=== PATIENT | female | born 1950 | race Caucasian/White ===

== ENCOUNTER 2021-09-02 05:56 | Day surgery (SDC) | payer MEDICARE, BC ==
[2021-08-31 15:01] VITALS: BMI 27.3
[2021-09-02] MEDS ORDERED: LIDOCAINE 1% (10MG/ML) FOR IV START INTRADERMA PRN (05:58)
[2021-09-02] MEDS ORDERED: LACTATED RINGERS 1,000 ML IV SCH (05:58)
[2021-09-02 06:39] VITALS: TEMP 97.7
[2021-09-02] MEDS ORDERED: PROPOFOL 10 MG/ML 20 ML VIAL IV ONE (07:07)
[2021-09-02] MEDS ORDERED: LIDOCAINE 2% INJ 20 MG/ML (2 ML VIAL) ONE (07:07)
--- NOTE | 2021-09-02 07:24 | P.PCN ---
Date of Procedure: 09/02/21 Procedure(s) Performed: Brief history: Patient is a pleasant 71-year-old white female scheduled for an elective upper endoscopy as well as colonoscopy as a part of evaluation of iron deficiency anemia. She denies any GI symptoms. Has occasional GERD and recent episode 20 mg Procedure performed: Esophagogastroduodenoscopy with biopsy Colonoscopy with biopsy Preoperative diagnosis: GERD Iron deficiency anemia Anesthesia: MAC Procedure: After informed consent was obtained from the patient was brought into the endoscopy unit and IV sedation was administered by anesthesia under continuous monitoring. Initially upper endoscopy was done. The Olympus GF 160 video endoscope was inserted inserted into the mouth and esophagus intubated without any difficulty and was gradually advanced into the stomach and duodenum and carefully examined. The bulb and second part of the duodenum appeared normal. Abscesses were done from the duodenum to rule out celiac disease. The scope was then withdrawn into the stomach adequately insufflated with air and upon careful examination the antrum mild gastritis in the prepyloric area which was biopsied. body, cardia and fundus appeared normal. The scope was then withdrawn into the esophagus. Small hiatal hernia noted. The GE junction was located at 40 cm to the incisors. It appeared regular with no erythema erosions or ulcerations. Rest of the esophagus appeared normal. Patient tolerated the procedure well. At this time the patient continued to remain sedation. Initial digital rectal examination was normal. Olympus CF 160 video colonoscope was then inserted into the rectum and gradually advanced to the cecum without any difficulty. Careful examination was performed as the scope was gradually being withdrawn. The prep was excellent. The cecum, ascending colon, transverse colon, descending colon, sigmoid colon and rectum appeared normal. There was a 3 mm proximal rectal polyp that was removed by cold biopsy. At her sigmoid diverticulosis seen. Retroflexion was performed in the rectum and no lesions were noted. Patient tolerated the procedure well. Impression: 1. Upper endoscopy revealed mild gastritis and small hiatal hernia 2. Colonoscopy revealed a 3 mm proximal rectal polyp status post cold biopsy and scattered sigmoid diverticulosis. Recommendations: Findings of this examination were discussed with the patient as well as her family. She was advised to follow with the biopsy results. If the biopsy is adenoma she can have a repeat colonoscopy in 5 years.
[2021-09-02 07:48] VITALS: BP 120/65; PULSE 66; RESP 16
== END 2021-09-02 08:01 | disposition home or self-care (01) ==
LOC: ORWHC2ENDO 05:56
PROVIDERS: ATTEND Internal Medicine Gastroenterology
DX: Z12.11 Encounter for screening for malignant neoplasm of colon (principal); K62.1 Rectal polyp; K57.90 Diverticulosis of intestine, part unspecified, without perforation or abscess without bleeding; K29.50 Unspecified chronic gastritis without bleeding; K44.9 Diaphragmatic hernia without obstruction or gangrene; K21.9 Gastro-esophageal reflux disease without esophagitis; D50.9 Iron deficiency anemia, unspecified; I12.9 Hypertensive chronic kidney disease with stage 1 through stage 4 chronic kidney disease, or unspecified chronic kidney disease; N18.9 Chronic kidney disease, unspecified; J44.9 Chronic obstructive pulmonary disease, unspecified; E03.9 Hypothyroidism, unspecified; Z85.3 Personal history of malignant neoplasm of breast; Z79.899 Other long term (current) drug therapy; Z79.890 Hormone replacement therapy; F17.210 Nicotine dependence, cigarettes, uncomplicated
CPT/HCPCS: 88305; 45380; 43239; J2704; J2001

== ENCOUNTER 2024-04-03 10:59 | Day surgery (SDC) | payer MEDICARE, BC ==
[~2024-04-03 10:59] MED LIST: HYDROmorphone 0.5 MG/0.5 ML SYRINGE IVP PRN
[2024-04-03] MEDS: IV FLUID CONTINUATION 1,000 ML IV ONE (11:19)
[2024-04-03] MEDS: LACTATED RINGERS 1,000 ML IV SCH (11:45)
[2024-04-03] MEDS: DEXAMETHASONE SOD PHOSPHATE 4 MG/ML 1 ML VIAL IV ONE (11:48)
[2024-04-03] MEDS: ONDANSETRON 4 MG/2 ML VIAL IVP ONE (11:49)
[2024-04-03] MEDS ORDERED: LIDOCAINE 1% INJ 10MG/ML (20 ML MDV) ONE (12:19)
[2024-04-03] MEDS ORDERED: PROPOFOL 10 MG/ML 20 ML VIAL IV ONE (12:19)
[2024-04-03] MEDS ORDERED: MIDAZOLAM 2 MG/2 ML VIAL ONE (12:19)
[2024-04-03] MEDS ORDERED: ePHEDrine 50 MG/ML 1 ML VIAL ONE (12:19)
[2024-04-03] MEDS ORDERED: SUCCINYLCHOLINE CHLORIDE 200 MG/10 ML VIAL IV ONE (12:19)
[2024-04-03] MEDS ORDERED: PHENYLEPHRINE-0.9% NACL SYG 1,000 MCG/10 ML SYRINGE ONE (12:19)
[2024-04-03] MEDS ORDERED: fentaNYL (PF) 50 MCG/ML 2 ML AMP ONE (12:19)
[2024-04-03] MEDS: SODIUM CHLORIDE 0.9% 50 ML with ceFAZolin 1,000 MG IV ONE (12:38)
[2024-04-03] MEDS: LIDOCAINE 1% INJ 10MG/ML (20 ML MDV) SQ ONE (12:42)
[2024-04-03] MEDS: HEPARIN SODIUM,PORCINE 100 UNIT/ML 5 ML VIAL IV ONE (12:43)
[2024-04-03] MEDS ORDERED: HYDROmorphone 0.5 MG/0.5 ML SYRINGE IVP PRN (13:08)
[2024-04-03] MEDS ORDERED: HYDROcodone/APAP 7.5-325MG 1 EACH TAB PO PRN (13:09)
[2024-04-03] MEDS ORDERED: ONDANSETRON 4 MG/2 ML VIAL IVP PRN (13:10)
--- NOTE | 2024-04-03 13:12 | FL ---
Fluoroscopy INDICATION: Pain FINDINGS: Fluoroscopy time: 7.9 seconds. Total dose area product (DAP) in uGy*m?, mGy*cm? (or similar): 0.2373 Images obtained: 3. IMPRESSION: 1. Documentation of fluoroscopy. [facility], , 04/03/2024 1:10 PM
--- NOTE | 2024-04-03 13:41 | XR ---
EXAMINATION TYPE: XR chest 1V DATE OF EXAM: 04/03/2024 1:31 PM COMPARISON: None. CLINICAL INDICATION: Female, 73 years old with history of Pneumothorax, attempted bilateral line plac ement TECHNIQUE: XR chest 1V view(s) obtained. FINDINGS: The heart size is normal. The pulmonary vasculature is normal. Small right pleural effusion is present. No pneumothorax evident. IMPRESSION: 1. Small right pleural effusion. 2. No pneumothorax [facility], , 04/03/2024 1:38 PM
[2024-04-03] MEDS: Pre Op ABX Message 1 EACH MISC MISCELLANE ONE (16:52)
[2024-04-03] MEDS ORDERED: IPRATROPIUM-ALBUTEROL 3 ML NEB INHALATION PRN (18:39)
--- NOTE | 2024-04-03 18:46 | P.CONS ---
History of Present Illness - Reason for Consult Consult date: 04/03/24 - History of Present Illness 73 year F with PMH Breast CA, HTN, COPD, GERD, Hypothyroidism, HLD presents to [facility] for elective surgery. She is scheduled for IJ Mediport insertion on 04/04. [facility] consulted for medical management of this patient. Patient denies any complaints at this time. BP 132/64, HR 72, RR 18, 94% on RA. General: non toxic, no distress, appears at stated age Derm: warm, dry Head: atraumatic, normocephalic, symmetric Eyes: EOMI, no lid lag, anicteric sclera Mouth: no lip lesion, mucus membranes moist Cardiovascular: S1S2 reg, no murmur Lungs: CTA bilateral, no rhonchi, no rales , no accessory muscle use Ext: no gross muscle atrophy, no edema, no contractures Neuro: no focal neuro deficits Psych: Alert, oriented, appropriate affect Based on my assessment of this patient, this patient meets a high complexity level of care. HTN: Atenolol 25 mg PO QD. COPD not in acute exacerbation: DuoNeb QID PRN SOB/wheezing. GERD: Protonix 40 mg PO QD. Pepcid 40 mg PO QHS. Hypothyroidism: Synthroid 100 mcg PO QD. HLD: Pravastatin 40 mg PO QHS. Breast CA following Dr. Bennett CODE STATUS: FULL CODE DVT Prophylaxis: SCD GI Prophylaxis: Pepcid + Protonix Designated medical POA if patient is not able to make medical decisions for themselves: I have reviewed the following service delivery management consultant notes: H&P I have reviewed the results of the following tests: I have ordered the following tests: I have discussed the care of this patient with the following independent historian: I have independently interpreted the following test below: I have discussed the management of this patient with the following physician: Past Medical History Past Medical History: Cancer, COPD, GERD/Reflux, Hypertension, Musculoskeletal Disorder, Pulmonary Embolus (PE), Renal Disease, Thyroid Disorder Additional Past Medical History / Comment(s): hx. PE after childbirth yrs. ago, "bleeds easily" per daughter but no condition that she knows of, Breast cancer diagnosed 10 -15 yrs ago, current bone cancer-getting chemo, daughter not sure if is mets or new, Chronic back pain, "6 deteriorating discs". 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 has occasional dysphagia History of Any Multi-Drug Resistant Organisms: None Reported Past Surgical History: Breast Surgery, Hysterectomy Additional Past Surgical History / Comment(s): Bilateral mastectomy. Past Anesthesia/Blood Transfusion Reactions: No Reported Reaction, Motion Sickness Smoking Status: Current every day smoker, Former smoker - Past Family History Son(s) Family Medical History: Cancer Medications and Allergies Home Medications Medication Instructions Recorded Confirmed Type Cetirizine HCl 10 mg PO DAILY 08/31/21 04/03/24 History Famotidine 40 mg PO HS 08/31/21 04/03/24 History Levothyroxine Sodium [Synthroid] 100 mcg PO QAM 08/31/21 04/03/24 History Pantoprazole [Protonix] 40 mg PO 1500 08/31/21 04/03/24 History Albuterol Inhaler [Ventolin Hfa 1 - 2 puff INHALATION Q6H PRN 03/30/24 04/03/24 History Inhaler] Diphenox-Atrop 2.5-0.025 mg 1 - 2 tab PO DIRECTED PRN 03/30/24 04/03/24 History [Lomotil] Fluticasone/Umeclidin/Vilanter 1 inhalation INHALATION DAILY 03/30/24 04/03/24 History [Trelegy Ellipta 100-62.5-25] Ipratropium-Albuterol Nebulize 3 ml INHALATION QID 03/30/24 04/03/24 History [Duoneb 0.5 mg-3 mg/3 ml Soln] Pravastatin Sodium [Pravachol] 40 mg PO HS 03/30/24 04/03/24 History atenoloL [Tenormin] 25 mg PO DAILY 03/30/24 04/03/24 History Sodium Chloride Tab 500 mg PO DAILY 04/02/24 04/03/24 History Allergies Allergy/AdvReac Type Severity Reaction Status Date / Time No Known Allergies Allergy Verified 04/03/24 11:29 Physical Exam Vitals: Vital Signs Temp Pulse Pulse Pulse Resp BP BP 04/03/24 16:55 51 L 16 115/66 04/03/24 15:40 61 15 117/65 04/03/24 15:10 57 L 16 123/64 04/03/24 14:55 78 16 122/64 04/03/24 14:40 72 18 132/64 02/25/25 14:25 70 17 128/66 04/03/24 14:11 64 16 132/68 04/03/24 13:56 70 17 158/87 04/03/24 13:41 70 18 167/82 04/03/24 13:26 78 18 154/68 04/03/24 13:11 96.9 F L 83 16 143/79 04/03/24 11:38 97.0 F L 60 16 130/71 Pulse Ox 04/03/24 16:55 100 04/03/24 15:40 92 L 04/03/24 15:10 100 04/03/24 14:55 93 L 04/03/24 14:40 94 L 04/03/24 14:25 95 04/03/24 14:11 91 L 04/03/24 13:56 92 L 04/03/24 13:41 96 04/03/24 13:26 99 04/03/24 13:11 99 04/03/24 11:38 97 Intake and Output 04/03/24 04/03/24 04/03/24 06:59 14:59 22:59 Intake Total 750 50 Output Total 15 Balance 735 50 Intake: IV 750 50 Output: Estimated Blood Loss 15 Other: Weight 47.5 kg 47.5 kg
[2024-04-03] MEDS: FAMOTIDINE 20 MG TAB PO SCH (20:52)
[2024-04-03] MEDS: PRAVASTATIN SODIUM 40 MG TAB PO SCH (20:52)
[2024-04-04] MEDS: LEVOTHYROXINE 100 MCG TAB PO SCH (04:41)
[2024-04-04] MEDS: SYMBICORT 160-4.5 MCG INHALER INHALATION SCH (09:05)
[2024-04-04] MEDS: LORATADINE 10 MG TAB PO SCH (10:12)
[2024-04-04] MEDS: atenoloL 25 MG TAB PO SCH (10:12)
[2024-04-04 10:24] LABS: Anisocytosis Slight; Basophils % (A) 0 %; Eosinophils # (A) 0.1 k/uL (0-0.7); Eosinophils % (A) 1 %; HGB 9.3 gm/dL (11.4-16.0); Hypochromasia Moderate; Lymphocytes % (A) 8 %; MCH 30.4 pg (25.0-35.0); MCV 101.3 fL (80.0-100.0); Macrocytosis Slight; Mean Platelet Volume 8.4; Monocytes # (A) 0.6 k/uL (0-1.0); Monocytes % (A) 5 %; Neutrophils # (A) 10.8 k/uL (1.3-7.7); Neutrophils % (A) 85 %; Platelet Count 323 k/uL (150-450); RBC 3.06 m/uL (3.80-5.40); WBC 12.6 k/uL (3.8-10.6)
[2024-04-04 10:34] LABS: African American GFR (CKD) 34 (>60 ml/min/1.73 sqM); Anion Gap 8 mmol/L; Blood Urea Nitrogen 23 mg/dL (7-17); Calcium 8.7 mg/dL (8.4-10.2); Carbon Dioxide 23 mmol/L (22-30); Chloride 105 mmol/L (98-107); Glucose 89 mg/dL (74-99); Non-African American GFR(CKD) 29 (>60 ml/min/1.73 sqM); Potassium 4.6 mmol/L (3.5-5.1); Sodium 136 mmol/L (137-145)
--- NOTE | 2024-04-04 13:58 | P.PN ---
Subjective Progress Note Date: 04/04/24 Subjective: Patient seen and examined at bedside. No acute events overnight. Pertinent positives and negatives as discussed above, a complete review of systems was performed and all other systems are negative. Vitals Signs Reviewed. General: Nontoxic, no distress, appears at stated age Derm: Warm, dry Head: Atraumatic, normocephalic, symmetric Eyes: EOMI, no lid lag, anicteric sclera Mouth: No lip lesion, mucus membranes moist Cardiovascular: S1S2 reg, no murmur Lungs: CTA bilateral, no rhonchi, no rales, no accessory muscle use Abdominal: Soft, nontender to palpation, no guarding, no appreciable organomegaly Ext: No gross muscle atrophy, no edema, no contractures Neuro: CN II-XI grossly intact, no focal neuro deficits Psych: Alert, oriented, appropriate affect Data Reviewed Today: Pertinent Labs: WBC 12.6, hemoglobin 9.3, creatinine 1.74 Imaging: No new imaging Assessment and Plan: Active: Breast cancer with recurrence, on chemotherapy -Patient pending Mediport insertion today -Admitted to general surgery Leukocytosis, likely reactive -No evidence of infection -Trend CBC Microcytic anemia, hemoglobin 9.3 -No active bleeding -Repeat hemoglobin tomorrow CKD stage III -Nonoliguric -Repeat BMP tomorrow -If worsening, consider renal ultrasound and nephrology consult HTN: Atenolol 25 mg PO QD. COPD not in acute exacerbation: DuoNeb QID PRN SOB/wheezing. GERD: Protonix 40 mg PO QD. Pepcid 40 mg PO QHS. Hypothyroidism: Synthroid 100 mcg PO QD. HLD: Pravastatin 40 mg PO QHS. Thank you for allowing us to participate in the care of this pleasant patient. Do not hesitate to contact us with questions. Someone can be reached from the [facility] hospitalist group all hours of the day at [phone] or via [employer]. Objective - Vital Signs Vital signs: Vital Signs Temp 97.7 F 04/04/24 13:21 Pulse 54 L 04/04/24 13:21 Resp 16 04/04/24 13:21 BP 90/51 04/04/24 13:21 Pulse Ox 98 04/04/24 13:21 FiO2 Intake & Output 04/03/24 04/04/24 04/04/24 18:59 06:59 18:59 Intake Total 1040 750 Output Total 15 Balance 1025 750 Weight 47.5 kg Intake: IV 800 Intake, IV Titration 240 Amount Lactated Ringers 1,000 ml 240 @ 20 mls/hr IV .Q24H CHASE Rx#:[id number] Oral 750 Output: Estimated Blood Loss 15 Other: # Voids 1 - Labs CBC & Chem 7: 04/04/24 09:54 04/04/24 09:54 Labs: Abnormal Lab Results - Last 24 Hours (Table) 04/04/24 04/04/24 Range/Units 09:54 09:54 WBC 12.6 H (3.8-10.6) k/uL RBC 3.06 L (3.80-5.40) m/uL Hgb 9.3 L (11.4-16.0) gm/dL Hct 31.0 L (34.0-46.0) % MCV 101.3 H (80.0-100.0) fL MCHC 30.0 L (31.0-37.0) g/dL RDW 17.0 H (11.5-15.5) % Neutrophils # 10.8 H (1.3-7.7) k/uL Sodium 136 L (137-145) mmol/L BUN 23 H (7-17) mg/dL Creatinine 1.74 H (0.52-1.04) mg/dL
[2024-04-04] MEDS: PANTOPRAZOLE 40 MG TABLET PO SCH (14:09)
[2024-04-04 14:43] VITALS: BMI 20.4
[2024-04-04] MEDS: IV FLUID CONTINUATION 400 ML IV ONE (14:59)
--- NOTE | 2024-04-04 15:52 | P.PN ---
Progress Note - Text Progress Note Date: 04/04/24 Plan to attempt Mediport insertion through left IJ today. Case discussed in depth with patient. She is agreeable with plan. Risks, benefits and alternatives including risks of bleeding and pneumothorax were discussed.
[2024-04-04] MEDS ORDERED: ePHEDrine 50 MG/ML 1 ML VIAL ONE (15:59)
[2024-04-04] MEDS ORDERED: fentaNYL (PF) 50 MCG/ML 2 ML AMP ONE (15:59)
[2024-04-04] MEDS ORDERED: PROPOFOL 10 MG/ML 20 ML VIAL IV ONE (15:59)
[2024-04-04] MEDS ORDERED: LIDOCAINE 1% INJ 10MG/ML (20 ML MDV) ONE (15:59)
[2024-04-04] MEDS ORDERED: MIDAZOLAM 2 MG/2 ML VIAL ONE (15:59)
[2024-04-04] MEDS: FLUID CONTINUATION IV ONE (16:01)
[2024-04-04] MEDS: CEFAZOLIN IV ONE (16:01)
[2024-04-04] MEDS: BUPIVACAINE (PF) 0.25% 30 ML VIAL SQ ONE (16:19)
[2024-04-04 16:53] VITALS: TEMP 97
--- NOTE | 2024-04-04 18:21 | XR ---
EXAMINATION TYPE: XR chest 1V confirm [facility] DATE OF EXAM: 04/04/2024 COMPARISON: Chest x-ray April 03, 2024 CLINICAL INDICATION: Female, 73 years old with history of Mediport placement; TECHNIQUE: Single portable frontal upright view of the chest is obtained. FINDINGS: There is new left internal jugular Mediport catheter terminating in SVC. There is stable sm all right pleural effusion and mild cardiomegaly. No pneumothorax seen after catheter insertion bilat erally. New Mild bilateral interstitial edema. The osseous structures are intact. IMPRESSION: As above. [facility], , 04/04/2024 6:19 PM
[2024-04-04 18:26] VITALS: BP 113/59; PULSE 52; RESP 18
[2024-04-04] MEDS ORDERED: FAMOTIDINE 20 MG TAB PO SCH (21:00)
--- NOTE | 2024-04-04 21:13 | P.DS ---
Providers Attending physician: Andrae Mckenna DO Consults: 04/03/24 13:08 Consult Physician Routine Consulting Provider: Rafiq Lee Consult Reason/Comments: Medical Management Do you want consulting provider notified?: Yes Primary care physician: Dem[facility] Course: Patient presented for elective Mediport placement secondary to breast cancer. Mediport placement and subclavian was unsuccessful and secondary to multiple attempts, patient was admitted for observation with plan to retry placement through the internal jugular vein. Next day, patient did present through internal jugular vein on the left side with successful appropriate flush and withdrawal. Postoperative chest x-ray was performed with no evidence of pneumothorax. Patient tolerated the procedure well and is surgically stable for discharge Procedures: Mediport placement with fluoroscopy Patient Condition at Discharge: Good Plan - Discharge Summary Discharge Rx Participant: No New Discharge Prescriptions: New HYDROcodone/APAP 7.5-325MG [[place] 7.5-325] 1 each PO Q6HR PRN #10 tab PRN Reason: Moderate Pain (Scale 4 To 6) Continue Levothyroxine Sodium [Synthroid] 100 mcg PO QAM Pantoprazole [Protonix] 40 mg PO 1500 Cetirizine HCl 10 mg PO DAILY Pravastatin Sodium [Pravachol] 40 mg PO HS atenoloL [Tenormin] 25 mg PO DAILY Ipratropium-Albuterol Nebulize [Duoneb 0.5 mg-3 mg/3 ml Soln] 3 ml INHALATION QID Fluticasone/Umeclidin/Vilanter [Trelegy Ellipta 100-62.5-25] 1 inhalation INHALATION DAILY Sodium Chloride Tab 500 mg PO DAILY Famotidine 40 mg PO HS Diphenox-Atrop 2.5-0.025 mg [Lomotil] 1 - 2 tab PO DIRECTED PRN PRN Reason: Diarrhea Albuterol Inhaler [Ventolin Hfa Inhaler] 1 - 2 puff INHALATION Q6H PRN PRN Reason: Shortness Of Breath Discharge Medication List Cetirizine HCl 10 mg PO DAILY 08/31/21 [History] Famotidine 40 mg PO HS 08/31/21 [History] Levothyroxine Sodium [Synthroid] 100 mcg PO QAM 08/31/21 [History] Pantoprazole [Protonix] 40 mg PO 1500 08/31/21 [History] Albuterol Inhaler [Ventolin Hfa Inhaler] 1 - 2 puff INHALATION Q6H PRN 03/30/24 [History] Diphenox-Atrop 2.5-0.025 mg [Lomotil] 1 - 2 tab PO DIRECTED PRN 03/30/24 [History] Fluticasone/Umeclidin/Vilanter [Trelegy Ellipta 100-62.5-25] 1 inhalation INHALATION DAILY 03/30/24 [History] Ipratropium-Albuterol Nebulize [Duoneb 0.5 mg-3 mg/3 ml Soln] 3 ml INHALATION QID 03/30/24 [History] Pravastatin Sodium [Pravachol] 40 mg PO HS 03/30/24 [History] atenoloL [Tenormin] 25 mg PO DAILY 03/30/24 [History] Sodium Chloride Tab 500 mg PO DAILY 04/02/24 [History] HYDROcodone/APAP 7.5-325MG [[place] 7.5-325] 1 each PO Q6HR PRN #10 tab 04/04/24 [Rx] Patient Instructions/Handouts: Hydrocodone/Acetaminophen (By mouth), Implanted Venous Access Port (DC) Activity/Diet/Wound Care/Special Instructions: Okay to shower beginning 04/05/2024 Take pain medication as needed Contact oncology office to begin chemotherapy Discharge Disposition: HOME SELF-CARE
--- NOTE | 2024-04-04 21:15 | P.OP ---
Date of Procedure: 04/04/24 Preoperative Diagnosis: Breast cancer Postoperative Diagnosis: Breast cancer Procedure(s) Performed: Mediport placement with fluoroscopic guidance Anesthesia: RADHA Surgeon: Alfie Simmons Pathology: none sent Condition: stable Disposition: same day Indications for Procedure: 73-year-old female presents for Mediport placement secondary to breast cancer. She had multiple attempts made through subclavian attempt yesterday with unsuccessful advancement of the wire. Secondary to this, plan is for another attempt through internal jugular vein today. Risks, benefits and alternatives were provided to the patient. All questions were answered. Operative Findings: Appropriate flush and withdrawal from Mediport site Description of Procedure: Patient was brought to the operating suite and placed in supine position on the operating table. Sedation was provided by anesthesia and the patient underwent endotracheal intubation. Patient was then prepped and draped in regular sterile fashion. Local anesthetic was administered and the left internal jugular vein was entered on first attempt. Guidewire was then placed and location was confirmed under fluoroscopic guidance. At this point local anesthetic was administered to create the pocket for the port. Incision was made and dissection was carried to the prepectoralis fascia. Dissection was carried to free up space for the port. At this point a small incision was made at the guidewire insertion site and a tunnel was created between this guidewire site and the pocket and catheter was placed. Dilator sheath was then placed over the guidewire under fluoroscopic guidance and catheter was then placed. Catheter was noted to be in appropriate position and was connected to the port and port was placed in the pocket. Appropriate flush and withdrawal was noted from the port site. The port was then secured to the prepectoralis fascia in 2 separate locations. Fluoroscopic guidance confirmed location with no kinks in the catheter. Heparin lock was placed. The wound was then closed in layers with 3- 0 Vicryl and 4-0 Vicryl subcuticular suture. Sterile dressing was applied. The patient was then taken to postanesthesia care unit in stable condition with pending chest x-ray.
--- NOTE | 2024-04-04 23:46 | FL ---
Fluoroscopy INDICATION: Pain FINDINGS: Fluoroscopy time: 30 seconds. Total dose area product (DAP) in uGy*m?, mGy*cm? (or similar): Not recorded Images obtained: 1. IMPRESSION: 1. Documentation of fluoroscopy. [facility], , 04/04/2024 11:44 PM
[2024-04-05] MEDS ORDERED: TIOTROPIUM 2.5 MCG INHALER INHALATION SCH (08:00)
== END 2024-04-04 19:17 | disposition home or self-care (01) ==
LOC: OR 10:59 → 5NMEDONC 16:03 → OR 04-04 19:17
PROVIDERS: ATTEND Surgery
DX: C50.919 Malignant neoplasm of unspecified site of unspecified female breast (principal); C79.51 Secondary malignant neoplasm of bone; M81.0 Age-related osteoporosis without current pathological fracture; M54.50 Low back pain, unspecified; Z71.89 Other specified counseling; Z17.0 Estrogen receptor positive status [ER+]; Z45.2 Encounter for adjustment and management of vascular access device; Z79.890 Hormone replacement therapy; Z79.899 Other long term (current) drug therapy
CPT/HCPCS: 77001; 71045; 36561; J1100; J2405; J0690; J2003; 80048; 85025; 94640

== ENCOUNTER 2024-04-15 12:35 | Inpatient (IN) | payer MEDICARE, BC ==
[2024-04-15] MEDS: HYDROmorphone 0.5 MG/0.5 ML SYRINGE IVP STA ×2 (13:05→14:18)
[2024-04-15 13:20] LABS: Anisocytosis Slight; Basophils % (A) 0 %; Eosinophils # (A) 0.3 k/uL (0-0.7); Eosinophils % (A) 3 %; HCT 30.4 % (34.0-46.0); HGB 9.5 gm/dL (11.4-16.0); Hypochromasia Slight; Lymphocytes # (A) 1.5 k/uL (1.0-4.8); Lymphocytes % (A) 15 %; MCH 30.6 pg (25.0-35.0); MCHC 31.3 g/dL (31.0-37.0); MCV 97.8 fL (80.0-100.0); Macrocytosis Slight; Monocytes # (A) 0.1 k/uL (0-1.0); Monocytes % (A) 1 %; Neutrophils # (A) 7.7 k/uL (1.3-7.7); Neutrophils % (A) 79 %; Platelet Count 384 k/uL (150-450); RBC 3.11 m/uL (3.80-5.40); WBC 9.7 k/uL (3.8-10.6)
--- NOTE | 2024-04-15 13:35 | CT ---
EXAMINATION TYPE: CT brain emiline wo con DATE OF EXAM: 04/15/2024 COMPARISON: None CLINICAL INDICATION: Female, 73 years old with history of pain; PHH, FALL TECHNIQUE: CT scan of the head and cervical spine are performed without contrast. CT DLP: 1335.[address] CTDI: mGy Automated exposure control for dose reduction was used. Findings: Head CT: Ventricles, basal cisterns and sulci over convexities within normal limits for the patient's age and there is no mass, mass effect or shift of midline structures. No abnormal density is seen throughout the brain parenchyma and there is no acute intra or extra-axia l hemorrhage. Posterior fossa including the brainstem, fourth ventricle and cerebellar pontine angles are grossly n ormal. The intraorbital contents appear normal and symmetric. Visualized paranasal sinuses are well aerated. There are no calvarial fractures but there are multiple sclerotic foci throughout the calvarium kristen childs the question of bone metastasis CT cervical spine: Craniovertebral junction relationships and prevertebral soft tissues are normal. The cervical vertebral segments are normal in height and alignment and there is no fracture subluxati on. The disc spaces are well-maintained in height and there is no significant degenerative disc disease. The bony cervical canal is widely patent and there is no bony encroachment of the neural foramina. There are multiple sclerotic densities throughout the cervical spine raising question of bone metasta sis correlation is recommended. The paraspinal soft tissues unremarkable. Note is made of at least a moderate right pleural effusion. IMPRESSION: 1. Head CT: No acute bleed or mass effect. Question of sclerotic metastases throughout the calvarium. 2. CT cervical spine: No acute trauma. Sclerotic metastases throughout the cervical spine. 3. Right pleural effusion [facility], , 04/15/2024 1:33 PM
[2024-04-15 13:36] LABS: ALT 20 U/L (4-34); AST 27 U/L (14-36); African American GFR (CKD) 30 (>60 ml/min/1.73 sqM); Alkaline Phosphatase 89 U/L (38-126); Anion Gap 12 mmol/L; Blood Urea Nitrogen 18 mg/dL (7-17); Carbon Dioxide 21 mmol/L (22-30); Chloride 105 mmol/L (98-107); Glucose 116 mg/dL (74-99); Non-African American GFR(CKD) 26 (>60 ml/min/1.73 sqM); Potassium 3.9 mmol/L (3.5-5.1); Sodium 138 mmol/L (137-145); Total Bilirubin 0.7 mg/dL (0.2-1.3); Total Protein 6.1 g/dL (6.3-8.2)
--- NOTE | 2024-04-15 13:37 | XR ---
Right wrist. HISTORY: Pain following fall. COMPARISON: None TECHNIQUE: 4 views of the right wrist are obtained. FINDINGS: There is no fracture, dislocation, intraosseous, intra-articular or soft tissue abnormality. IMPRESSION: No significant abnormality seen. No acute trauma [facility], , 04/15/2024 1:35 PM
--- NOTE | 2024-04-15 13:40 | XR ---
EXAMINATION TYPE: XR Hip RT and AP Pelvis DATE OF EXAM: 04/15/2024 COMPARISON: NONE CLINICAL INDICATION: Female, 73 years old with history of fall; right TECHNIQUE: A single AP view of the pelvis is obtained. Two views of the right hip are obtained. FINDINGS: There is heterogeneous partially sclerotic partially lytic density throughout the pelvis consistent w ith bone metastasis. There is no acute pelvic fracture. There is no diastasis of the SI joints or pub ic symphysis. There is a mildly displaced intertrochanteric fracture of the right hip. The fracture appears to pass through abnormal partially sclerotic bone and is consistent with a pathological fracture.. IMPRESSION: 1. 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 2. Pathologic displaced intertrochanteric fracture of the right hip. 3. No pelvic fracture [facility], Workstation: [email or web address] 04/15/2024 1:37 PM
--- NOTE | 2024-04-15 13:42 | XR ---
EXAMINATION TYPE: XR chest 1V DATE OF EXAM: 04/15/2024 COMPARISON: 04/03/2024 CLINICAL INDICATION: Female, 73 years old with history of fall; TECHNIQUE: Single frontal view of the chest is obtained. FINDINGS: There is a Mediport catheter on the left terminating in the SVC/RA junction. There is a stable small to moderate right pleural effusion. The lungs are clear. The heart and pulmonary vasculature are normal in normal limits. The osseous structures are grossly intact. IMPRESSION: Stable small moderate right pleural effusion. [facility], , 04/15/2024 1:39 PM
[2024-04-15] MEDS ORDERED: NALOXONE 0.4 MG/ML 1 ML VIAL IV PRN (13:58)
[2024-04-15] MEDS ORDERED: HYDROmorphone 0.5 MG/0.5 ML SYRINGE IVP PRN (13:58)
--- NOTE | 2024-04-15 13:58 | ED ---
Fall HPI - General Chief Complaint: Fall Stated Complaint: Fall-R hip/wrist injury Time Seen by Provider: 04/15/24 12:36 Source: patient, EMS Mode of arrival: EMS Limitations: physical limitation - History of Present Illness Initial Comments: 73-year-old female presents emerged part via EMS chief complaint of fall, right hip pain right wrist pain. Patient states that she was unpacking the dog leash when she lost her balance falling striking her right side. She did strike her head but had no loss conscious no blood thinners. Patient states she probably has right hip and right wrist severe pain. Patient does have a history of breast cancer started chemotherapy last Tuesday states that she had a recent port placed also. - Related Data Home Medications Medication Instructions Recorded Confirmed Cetirizine HCl 10 mg PO DAILY 08/31/21 04/15/24 Famotidine 40 mg PO DAILY 08/31/21 04/15/24 Pantoprazole [Protonix] 40 mg PO DAILY 08/31/21 04/15/24 Albuterol Inhaler [Ventolin Hfa 2 puff INHALATION RT-Q4H PRN 03/30/24 04/15/24 Inhaler] Diphenox-Atrop 2.5-0.025 mg 1 tab PO QID PRN 03/30/24 04/15/24 [Lomotil] Ipratropium-Albuterol Nebulize 3 ml INHALATION RT-QID 03/30/24 04/15/24 [Duoneb 0.5 mg-3 mg/3 ml Soln] Pravastatin Sodium [Pravachol] 40 mg PO DAILY 03/30/24 04/15/24 atenoloL [Tenormin] 25 mg PO BID 03/30/24 04/15/24 Calcium 500mg 500 mg PO DAILY 04/15/24 04/15/24 HYDROcodone/APAP 7.5-325MG [[place] 1 tab PO Q6HR PRN 04/15/24 04/15/24 7.5-325] Levothyroxine Sodium [Synthroid] 100 mcg PO DAILY 04/15/24 04/15/24 Lidocaine-Prilocaine Cream [Emla 1 applic TOPICAL DIRECTED PRN 04/15/24 04/15/24 Cream 2.5%/2.5%] Loperamide [Imodium] 2 - 4 mg PO Q6H 04/15/24 04/15/24 Ondansetron Odt [Zofran Odt] 4 - 8 mg PO Q4H PRN 04/15/24 04/15/24 Previous Rx's Medication Instructions Recorded Apixaban [Eliquis] 2.5 mg PO BID 30 Days #60 tab 04/17/24 HYDROcodone/APAP 5-325MG [[place] 1 tab PO Q6HR PRN #28 tab 04/17/24 5-325] Sennosides [Senokot] 2 tab PO DAILY PRN #60 tablet 04/17/24 Allergies Allergy/AdvReac Type Severity Reaction Status Date / Time No Known Allergies Allergy Verified 04/17/24 08:42 Review of Systems ROS Statement: Those systems with pertinent positive or pertinent negative responses have been documented in the HPI. ROS Other: All systems not noted in ROS Statement are negative. Past Medical History Past Medical History: Cancer, COPD, GERD/Reflux, Hypertension, Musculoskeletal Disorder, Pulmonary Embolus (PE), Renal Disease, Thyroid Disorder Additional Past Medical History / Comment(s): hx. PE after childbirth yrs. ago, "bleeds easily" per daughter but no condition that she knows of, Breast cancer diagnosed 10 -15 yrs ago, current bone cancer-getting chemo, daughter not sure if is mets or new, Chronic back pain, "6 deteriorating discs". 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 has occasional dysphagia History of Any Multi-Drug Resistant Organisms: None Reported Past Surgical History: Breast Surgery, Hysterectomy Additional Past Surgical History / Comment(s): Bilateral mastectomy. Past Anesthesia/Blood Transfusion Reactions: No Reported Reaction, Motion Sickness Smoking Status: Current every day smoker, Former smoker - Past Family History Son(s) Family Medical History: Cancer General Exam Limitations: no limitations General appearance: alert, in no apparent distress Head exam: Present: atraumatic, normocephalic, normal inspection Eye exam: Present: normal appearance, PERRL, EOMI. Absent: scleral icterus, conjunctival injection, periorbital swelling ENT exam: Present: normal exam, normal oropharynx, mucous membranes moist Neck exam: Present: normal inspection. Absent: tenderness, meningismus, lymphadenopathy Respiratory exam: Present: normal lung sounds bilaterally. Absent: respiratory distress, wheezes, rales, rhonchi, stridor Cardiovascular Exam: Present: regular rate, normal rhythm, normal heart sounds. Absent: systolic murmur, diastolic murmur, rubs, gallop, clicks GI/Abdominal exam: Present: soft, normal bowel sounds. Absent: distended, tenderness, guarding, rebound, rigid Course Vital Signs 04/15/24 04/15/24 04/15/24 12:38 14:06 14:12 Temperature 97.7 F Pulse Rate 56 L 66 Respiratory 18 18 18 Rate Blood Pressure 122/74 141/84 O2 Sat by Pulse 81 L 100 Oximetry 04/15/24 14:35 Temperature Pulse Rate 72 Respiratory 18 Rate Blood Pressure 128/65 O2 Sat by Pulse 99 Oximetry Medical Decision Making - Medical Decision Making Was pt. sent in by a medical professional or institution (, PA, SAFETY ASSISTANT, urgent care, hospital, or shelter...) When possible be specific @ -No Did you speak to anyone other than the patient for history (EMS, parent, family, police, friend...)? What history was obtained from this source @ -No Did you review nursing and triage notes (agree or disagree)? Why? @ -I reviewed and agree with nursing and triage notes Were old charts reviewed (outside hosp., previous admission, EMS record, old EKG, old radiological studies, urgent care reports/EKG's, shelter records)? Report findings @ -No old charts were reviewed Differential Diagnosis (chest pain, altered mental status, abdominal pain women, abdominal pain men, vaginal bleeding, weakness, fever, dyspnea, syncope, headache, dizziness, GI bleed, back pain, seizure, CVA, palpatations, mental health, musculoskeletal)? @ -Fall, hip fracture, hip dislocation, wrist fracture, intracranial hemorrhage, EKG interpreted by me (3pts min.). @ -As above X-rays interpreted by me (1pt min.). @ -Chest x-ray shows pleural effusion stable X-ray right wrist shows no obvious acute fracture. X-ray right hip with AP pelvis showing evidence of IT fracture pathological CT interpreted by me (1pt min.). @CT right hip showing mildly displaced hip fracture intertrochanteric, multiple lytic lesions noted, U/S interpreted by me (1pt. min.). @ -None done What testing was considered but not performed or refused? (CT, X-rays, U/S, labs)? Why? @ -None What meds were considered but not given or refused? Why? @ -None Did you discuss the management of the patient with other professionals (professionals i.e. , PA, SAFETY ASSISTANT, lab, RT, psych nurse, social work manager, sports bookmaker, teacher, ship's electronic warfare officer, case loader operator)? Give summary @ -Discussed case with on-call orthopedics Dr. Hurst recommends CT of the right hip, admission to medicine given multiple core morbidities. I discussed case with [facility] on-call [facility] group who accepts admission. Was smoking cessation discussed for >3mins.? @ -No Was critical care preformed (if so, how long)? @ -No Were there social determinants of health that impacted care today? How? (Homelessness, low income, unemployed, alcoholism, drug addiction, transportation, low edu. Level, literacy, decrease access to med. care, shelter, rehab)? @ -No Was there de-escalation of care discussed even if they declined (Discuss DNR or withdrawal of care, Hospice)? DNR status @ -No What co-morbidities impacted this encounter? (DM, HTN, Smoking, COPD, CAD, Cancer, CVA, ARF, Chemo, Hep., AIDS, mental health diagnosis, sleep apnea, morbid obesity)? @ -Metastatic breast cancer, COPD, Was patient admitted / discharged? Hospital course, mention meds given and route, prescriptions, significant lab abnormalities, going to OR and other pertinent info. @ -Admitted patient presented after a fall. Patient with a right IT pathological fracture patient does have metastatic breast cancer and multiple other comorbidities. Patient will be admitted for medical evaluation, medical clearance and orthopedic evaluation. Undiagnosed new problem with uncertain prognosis? @ -Yes Drug Therapy requiring intensive monitoring for toxicity (Heparin, Nitro, Insulin, Cardizem)? @ -No Were any procedures done? @ -No Diagnosis/symptom? @ -falll, right IT pathological fracture, metastatic breast cancer Acute, or Chronic, or Acute on Chronic? @ -Acute Uncomplicated (without systemic symptoms) or Complicated (systemic symptoms)? @ -Complicated Side effects of treatment? @ -No Exacerbation, Progression, or Severe Exacerbation? @ -No Poses a threat to life or bodily function? How? (Chest pain, [place], [place], pneumonia, PE, COPD, DKA, ARF, appy, cholecystitis, CVA, Diverticulitis, Homicidal, Suicidal, threat to staff... and all critical care pts) @ -Yes surgical risk, metastatic breast cancer - Lab Data Result diagrams: 04/15/24 13:13 04/15/24 13:13 Lab Results 04/15/24 04/15/24 04/15/24 Range/Units 13:13 13:13 13:13 WBC 9.7 (3.8-10.6) k/uL RBC 3.11 L (3.80-5.40) m/uL Hgb 9.5 L (11.4-16.0) gm/dL Hct 30.4 L (34.0-46.0) % MCV 97.8 (80.0-100.0) fL MCH 30.6 (25.0-35.0) pg MCHC 31.3 (31.0-37.0) g/dL RDW 17.0 H (11.5-15.5) % Plt Count 384 (150-450) k/uL MPV 7.0 Neutrophils % 79 % Lymphocytes % 15 % Monocytes % 1 % Eosinophils % 3 % Basophils % 0 % Neutrophils # 7.7 (1.3-7.7) k/uL Lymphocytes # 1.5 (1.0-4.8) k/uL Monocytes # 0.1 (0-1.0) k/uL Eosinophils # 0.3 (0-0.7) k/uL Basophils # 0.0 (0-0.2) k/uL Hypochromasia Slight Anisocytosis Slight Macrocytosis Slight PT 10.7 (10.0-12.5) sec INR 1.0 (<1.2) APTT 21.4 L (22.0-30.0) sec Sodium 138 (137-145) mmol/L Potassium 3.9 (3.5-5.1) mmol/L Chloride 105 (98-107) mmol/L Carbon Dioxide 21 L (22-30) mmol/L Anion Gap 12 mmol/L BUN 18 H (7-17) mg/dL Creatinine 1.89 H (0.52-1.04) mg/dL Est GFR (CKD-EPI)AfAm 30 (>60 ml/min/1.73 sqM) Est GFR (CKD-EPI)NonAf 26 (>60 ml/min/1.73 sqM) Glucose 116 H (74-99) mg/dL Calcium 9.0 (8.4-10.2) mg/dL Total Bilirubin 0.7 (0.2-1.3) mg/dL AST 27 (14-36) U/L ALT 20 (4-34) U/L Alkaline Phosphatase 89 (38-126) U/L Total Protein 6.1 L (6.3-8.2) g/dL Albumin 3.0 L (3.5-5.0) g/dL - EKG Data -: EKG Interpreted by Me EKG Comments: EKG performed at 13: 59 sinus bradycardia rate of 59 MS 151 QRS 81 QT/QTc 424/424 Disposition Clinical Impression: Fall, Breast cancer metastasized to bone, Fracture, intertrochanteric, right femur, Sprain of wrist Disposition: ADMITTED IP TO THIS [facility] Condition: Fair Time of Disposition: 13:52
[2024-04-15] MEDS ORDERED: IPRATROPIUM-ALBUTEROL 3 ML NEB INHALATION PRN (14:00)
[2024-04-15 14:02] LABS: Partial Thromboplastin Time 21.4 sec (22.0-30.0); Prothrombin Time 10.7 sec (10.0-12.5)
[2024-04-15] MEDS: HYDROmorphone 1 MG/ML 1 ML SYRINGE IVP PRN (15:14)
--- NOTE | 2024-04-15 15:35 | CT ---
EXAMINATION TYPE: CT hip RT wo con DATE OF EXAM: 04/15/2024 2:49 PM COMPARISON: Radiograph 04/25/2024. CLINICAL INDICATION: Female, 73 years old with history of Fall, pathological fracture; [facility], TECHNIQUE: Axial images were obtained of the CT hip RT wo con, Additional coronal and sagittal reform atted images and soft tissue and bone window were obtained for review. 3-D reconstruction was created on a separate workstation. FINDINGS: Extensive mixed blastic and lytic osseous metastatic disease throughout the visualized axial and appe ndicular skeleton. Comminuted displaced fracture of the right femoral neck and intertrochanteric romel on. Right femoral head articulates with the acetabulum. Lucent lesion in the proximal right femur bossman picious for pathologic fracture. Greater and lesser trochanters are displaced. Pubic bones appear int act as visualized. No unexpected radio opaque foreign body. Significantly impacted rectosigmoid colon ic stool burden with likely surgical colitis. Manriquez catheter visualized within the urinary bladder kartik men. IMPRESSION: 1. Likely pathologic comminuted mildly displaced fracture of the proximal right femur as described a angela. 2. Extensive lytic and blastic osseous metastatic disease are identified axial and appendicular skel eton. 3. Impacted rectosigmoid colonic stool and additional findings suggestive of stercoral colitis. 4. Manriquez catheter in place within urinary bladder lumen. [facility], , 04/15/2024 3:33 PM
--- NOTE | 2024-04-15 16:34 | XR ---
EXAMINATION TYPE: XR femur RT DATE OF EXAM: 04/15/2024 4:27 PM COMPARISON: Same day CT study. CLINICAL INDICATION: Female, 73 years old with history of Broken hip; PHH, pain TECHNIQUE: XR femur RT examined in Frontal and lateral projections. FINDINGS: Comminuted displaced intertrochanteric fracture of the proximal right femur with mild late ral distraction of the distal fracture component. Right femoral head appears to articulate with the g lenoid. Lytic and blastic metastatic disease better visualized on same-day CT. IMPRESSION: Comminuted displaced intertrochanteric fracture of the proximal right femur. [facility], , 04/15/2024 4:32 PM
[2024-04-15] MEDS ORDERED: NON FORMULARY DRUG (Albuterol Inhaler 90 MCG Puff) INHALATION PRN (17:03)
--- NOTE | 2024-04-15 17:06 | P.HPIM ---
History of Present Illness H&P Date: 04/15/24 Chief Complaint: Mechanical fall with hip pain 73-year-old woman with medical history of COPD, metastatic breast cancer to the bones, hypertension, hyperlipidemia, GERD presented for evaluation of mechanical fall resulting in hip fracture. Patient says that she was outside trying to untangle her dog from the tree so that she can bring it inside when the leash got caught up in her legs and she tripped over it, fell and felt an immediate pain in the right hip. Patient also tells me that she recently resumed her chemotherapy for metastatic breast cancer for which she has had a history of for over 10 years and was on estrogen therapy, but unfortunately her disease retu rned and she had to resume chemo starting last week. She does continue to smoke cigarettes, but does not drink or do recreational drugs. She is able to do house chores such as cleaning the house, laundry at home without any shortness of breath or angina. She otherwise denies fevers, chills, nausea, vomiting, chest pain, palpitations, diarrhea, dysuria. In the emergency room, patient was afebrile, 122/74, heart rate 56, 100% on 2 L of nasal cannula. CBC demonstrates anemia down to 9.5, this is patient's baseline. Basic metabolic panel demonstrates creatinine of 1.9, close to patient's baseline of 1.7. Albumin is low. Coags are unremarkable. Head CT showed no acute bleed or mass effect with question of sclerotic masses throughout the calvarium, CT cervical spine showed no acute trauma with sclerotic metastases throughout the cervical spine, also demonstrated an incidental right pleural effusion. Wrist x-ray was normal. Hip/pelvic x-ray showed diffuse bone metastasis in the hips and pelvis as well as a pathologic displaced intertrochanteric fracture of the right hip. Chest x-ray showed a small stable pleural effusion on the right. Hip CT demonstrated pathologic comminuted displaced fracture of the proximal right femur as well as extensive lytic and blastic osseous metastatic lesions in the axial and appendicular skeleton. Femur x-ray again showed comminuted displaced intertrochanteric fracture of the proximal right femur. Case was discussed with the emergency room decision was made to admit the patient to the hospital for further evaluation with orthopedic surgery consultation. All Systems reviewed and pertinent positives and negatives noted in HPI, all other symptoms are negative Gen: In NAD, non-toxic HEENT: normocephalic, atraumatic, hearing acuity is intant, mucous membranes moist CVS: perfusing all extremities well, no pitting edema, Respiratory: symmetric chest expansion, no accessory muscle use, GI: soft, NTTP, ND, : no suprapubic tenderness, no CVA tenderness MSK/Derm: no rashes, cyanosis Neuro: CN II-XII intact, no motor weakness, Psych: cooperative, euthymic mood, judgment and insight is intact Labs and imaging as above Assessment/plan: Preoperative evaluation Right hip fracture, pathological Metastatic breast cancer to the bone -Patient represents intermediate risk for intermediate risk procedure -Okay to proceed to surgery without further need of testing -Orthopedic surgery consultation is appreciated -Oncology consult is appreciated COPD without exacerbation -Resume patient's home DuoNebs, albuterol as needed Hypertension -Resume patient's atenolol Hyperlipidemia -Resume patient's statin GERD without esophagitis -Resume patient's Protonix, famotidine Constipation -Start bowel regimen: MiraLAX 17 g daily, Senokot-S 1 tab twice daily, bisacodyl suppository 10 mg daily as needed Patient is full code Defer DVT prophylaxis to the orthopedic surgery team Past Medical History Past Medical History: Cancer, COPD, GERD/Reflux, Hypertension, Musculoskeletal Disorder, Pulmonary Embolus (PE), Renal Disease, Thyroid Disorder Additional Past Medical History / Comment(s): hx. PE after childbirth yrs. ago, "bleeds easily" per daughter but no condition that she knows of, Breast cancer diagnosed 10 -15 yrs ago, current bone cancer-getting chemo, daughter not sure if is mets or new, Chronic back pain, "6 deteriorating discs". 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 has occasional dysphagia History of Any Multi-Drug Resistant Organisms: None Reported Past Surgical History: Breast Surgery, Hysterectomy Additional Past Surgical History / Comment(s): Bilateral mastectomy. Past Anesthesia/Blood Transfusion Reactions: No Reported Reaction, Motion Si ckness Past Psychological History: Anxiety Smoking Status: Current every day smoker, Former smoker Past Alcohol Use History: None Reported Additional Past Alcohol Use History / Comment(s): smokes 1 cigarette per month. 1 pack per day smoker history Past Drug Use History: None Reported - Past Family History Son(s) Family Medical History: Cancer Medications and Allergies Home Medications Medication Instructions Recorded Confirmed Type Cetirizine HCl 10 mg PO DAILY 08/31/21 04/15/24 History Famotidine 40 mg PO DAILY 08/31/21 04/15/24 History Pantoprazole [Protonix] 40 mg PO DAILY 08/31/21 04/15/24 History Albuterol Inhaler [Ventolin Hfa 2 puff INHALATION RT-Q4H PRN 03/30/24 04/15/24 History Inhaler] Diphenox-Atrop 2.5-0.025 mg 1 tab PO QID PRN 03/30/24 04/15/24 History [Lomotil] Ipratropium-Albuterol Nebulize 3 ml INHALATION RT-QID 03/30/24 04/15/24 History [Duoneb 0.5 mg-3 mg/3 ml Soln] Pravastatin Sodium [Pravachol] 40 mg PO DAILY 03/30/24 04/15/24 History atenoloL [Tenormin] 25 mg PO BID 03/30/24 04/15/24 History Calcium 500mg 500 mg PO DAILY 04/15/24 04/15/24 History HYDROcodone/APAP 7.5-325MG [[place] 1 tab PO Q6HR PRN 04/15/24 04/15/24 History 7.5-325] Levothyroxine Sodium [Synthroid] 100 mcg PO DAILY 04/15/24 04/15/24 History Lidocaine-Prilocaine Cream [Emla 1 applic TOPICAL DIRECTED PRN 04/15/24 History Cream 2.5%/2.5%] Loperamide [Imodium] 2 - 4 mg PO Q6H 04/15/24 04/15/24 History Ondansetron Odt [Zofran Odt] 4 - 8 mg PO Q4H PRN 04/15/24 04/15/24 History Allergies Allergy/AdvReac Type Severity Reaction Status Date / Time No Known Allergies Allergy Verified 04/15/24 14:20 Physical Exam Osteopathic Statement: *. No significant issues noted on an osteopathic structural exam other than those noted in the History and Physical/Consult. Vitals: Vital Signs Temp Pulse Pulse Resp BP BP Pulse Ox 04/15/24 15:21 98.1 F 72 19 169/71 96 04/15/24 14:35 72 18 128/65 99 04/15/24 14:12 18 04/15/24 14:06 66 18 141/84 100 04/15/24 12:38 97.7 F 56 L 18 122/74 81 L Intake and Output 04/15/24 04/15/24 04/15/24 06:59 14:59 22:59 Other: Weight 49.895 kg Results CBC & Chem 7: 04/15/24 13:13 04/15/24 13:13 Labs: Abnormal Lab Results - Last 24 Hours (Table) 04/15/24 04/15/24 04/15/24 Range/Units 13:13 13:13 13:13 RBC 3.11 L (3.80-5.40) m/uL Hgb 9.5 L (11.4-16.0) gm/dL Hct 30.4 L (34.0-46.0) % RDW 17.0 H (11.5-15.5) % APTT 21.4 L (22.0-30.0) sec Carbon Dioxide 21 L (22-30) mmol/L BUN 18 H (7-17) mg/dL Creatinine 1.89 H (0.52-1.04) mg/dL Glucose 116 H (74-99) mg/dL Total Protein 6.1 L (6.3-8.2) g/dL Albumin 3.0 L (3.5-5.0) g/dL Thrombosis Risk Factor Assmnt - Choose All That Apply Any of the Below Risk Factors Present?: Yes Each Factor Represents 1 point: Medical pt on bed rest Other Risk Factors: Yes Each Risk Factor Represents 2 Points: Age 61-74 years, Major surgery, Patient confined to bed Other congenital or acquired thrombophilia - If yes, enter type in comment: No Thrombosis Risk Factor Assessment Total Risk Factor Score: 7 Thrombosis Risk Factor Assessment Level: High Risk
[2024-04-15] MEDS: IPRATROPIUM-ALBUTEROL 3 ML NEB INHALATION SCH (18:43)
[2024-04-15] MEDS: atenoloL 25 MG TAB PO SCH (21:51)
[2024-04-16] MEDS: LEVOTHYROXINE 100 MCG TAB PO SCH (06:19)
[2024-04-16] MEDS: FAMOTIDINE 20 MG TAB PO SCH (09:13)
[2024-04-16] MEDS: CALCIUM CARBONATE 500 MG CHEWABLE PO SCH (09:13)
[2024-04-16] MEDS: PRAVASTATIN SODIUM 40 MG TAB PO SCH (09:13)
[2024-04-16] MEDS: PANTOPRAZOLE 40 MG TABLET PO SCH (09:13)
[2024-04-16] MEDS: LORATADINE 10 MG TAB PO SCH (09:13)
--- NOTE | 2024-04-16 11:52 | P.CNOR ---
History of Present Illness - HPI Consult date: 04/16/24 History of present illness: This is a 73-year-old female who is admitted for a right hip fracture. Patient is seen and evaluated at bedside today. Patient states that she tripped over her dog and fell on 04/15/2024. Patient was transferred to the emergency room via EMS where x-rays revealed an intertrochanteric fracture of the right femur with evidence for metastases. Patient is currently undergoing chemotherapy for metastatic breast cancer. Further metastases seen on CT of the right hip, CT of the head and C-spine, and hip and pelvis x-rays. Patient's past medical history significant for COPD, hypertension, hyperlipidemia, GERD, history of PE and metastatic breast cancer. Patient denies any fever/chills, chest pain, shortness breath, abdominal pain, numbness, weakness or tingling. Review of Systems See HPI. Past Medical History Past Medical History: Cancer, COPD, GERD/Reflux, Hypertension, Musculoskeletal Disorder, Pulmonary Embolus (PE), Renal Disease, Thyroid Disorder Additional Past Medical History / Comment(s): hx. PE after childbirth yrs. ago, "bleeds easily" per daughter but no condition that she knows of, Breast cancer diagnosed 10 -15 yrs ago, current bone cancer-getting chemo, daughter not sure if is mets or new, Chronic back pain, "6 deteriorating discs". 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 has occasional dysphagia History of Any Multi-Drug Resistant Organisms: None Reported Past Surgical History: Breast Surgery, Hysterectomy Additional Past Surgical History / Comment(s): Bilateral mastectomy. Past Anesthesia/Blood Transfusion Reactions: No Reported Reaction, Motion Sickness Past Psychological History: Anxiety Smoking Status: Current every day smoker, Former smoker Past Alcohol Use History: None Reported Additional Past Alcohol Use History / Comment(s): smokes 1 cigarette per month. 1 pack per day smoker history Past Drug Use History: None Reported - Past Family History Son(s) Family Medical History: Cancer Medications and Allergies Home Medications Medication Instructions Recorded Confirmed Type Cetirizine HCl 10 mg PO DAILY 08/31/21 04/15/24 History Famotidine 40 mg PO DAILY 08/31/21 04/15/24 History Pantoprazole [Protonix] 40 mg PO DAILY 08/31/21 04/15/24 History Albuterol Inhaler [Ventolin Hfa 2 puff INHALATION RT-Q4H PRN 02/21/25 03/09/25 History Inhaler] Diphenox-Atrop 2.5-0.025 mg 1 tab PO QID PRN 03/30/24 04/15/24 History [Lomotil] Ipratropium-Albuterol Nebulize 3 ml INHALATION RT-QID 03/30/24 04/15/24 History [Duoneb 0.5 mg-3 mg/3 ml Soln] Pravastatin Sodium [Pravachol] 40 mg PO DAILY 03/30/24 04/15/24 History atenoloL [Tenormin] 25 mg PO BID 03/30/24 04/15/24 History Calcium 500mg 500 mg PO DAILY 04/15/24 04/15/24 History HYDROcodone/APAP 7.5-325MG [Brewster 1 tab PO Q6HR PRN 04/15/24 04/15/24 History 7.5-325] Levothyroxine Sodium [Synthroid] 100 mcg PO DAILY 04/15/24 04/15/24 History Lidocaine-Prilocaine Cream [Emla 1 applic TOPICAL DIRECTED PRN 04/15/24 04/15/24 History Cream 2.5%/2.5%] Loperamide [Imodium] 2 - 4 mg PO Q6H 04/15/24 04/15/24 History Ondansetron Odt [Zofran Odt] 4 - 8 mg PO Q4H PRN 04/15/24 04/15/24 History Allergies Allergy/AdvReac Type Severity Reaction Status Date / Time No Known Allergies Allergy Verified 04/15/24 14:20 Physical Examination On exam patient is resting comfortably in bed in no acute distress. Patient is alert and oriented 3. Right lower extremity: Shortened and externally rotated. Skin is intact. There is mild soft tissue swelling. Calf is soft and nontender to palpation. Sensation intact. Neurovascular status and circulatory status are intact. Right wrist exam: Mild tenderness to palpation over the dorsal aspect of the wrist. No significant swelling. Good motion of the right wrist and hand. Sensation intact. Skin intact. No erythema or ecchymosis. Neurovascular status and circulatory status are intact. Results An x-ray report of the right femur dated 04/15/2024 shows: Comminuted displaced intertrochanteric fracture of the right proximal femur. Lytic and blastic metastatic disease better visualized on same-day CT. A CT report of the right hip dated 04/15/2024 shows: 1. Likely pathologic comminuted mildly displaced fracture of the proximal right femur as described above. Extensive mixed blastic and lytic osseous metastatic disease throughout the visualized axial and appendicular skeleton. Comminuted displaced fracture of the right femoral neck and intertrochanteric region. Right femoral head articulates with the acetabulum. Lucent lesion in the right proximal femur suspicious for pathologic fracture. 2. Extensive lytic and blastic osseous metastatic disease identified axial and appendicular skeleton. 3. Impacted rectosigmoid colonic stool additional findings suggestive of sterocoral colitis. 4. Manriquez catheter in place with urinary bladder lumen. An x-ray report for the right hip and pelvis shows: 1. Diffuse bone metastasis of the hips and pelvis. 2. Pathologic displaced intertrochanteric fracture of the right hip. 3. No pelvic fracture X-rays of the right wrist dated 04/15/2024 are negative. - Labs Labs: Abnormal Lab Results - Last 24 Hours (Table) 04/15/24 04/15/24 04/15/24 Range/Units 13:13 13:13 13:13 RBC 3.11 L (3.80-5.40) m/uL Hgb 9.5 L (11.4-16.0) gm/dL Hct 30.4 L (34.0-46.0) % RDW 17.0 H (11.5-15.5) % APTT 21.4 L (22.0-30.0) sec Carbon Dioxide 21 L (22-30) mmol/L BUN 18 H (7-17) mg/dL Creatinine 1.89 H (0.52-1.04) mg/dL Glucose 116 H (74-99) mg/dL Total Protein 6.1 L (6.3-8.2) g/dL Albumin 3.0 L (3.5-5.0) g/dL H & H 04/15/24 Range/Units 13:13 Hgb 9.5 L (11.4-16.0) gm/dL Hct 30.4 L (34.0-46.0) % Coagulation 04/15/24 Range/Units 13:13 INR 1.0 (<1.2) Result Diagrams: 04/15/24 13:13 04/15/24 13:13 Assessment and Plan (1) Pathologic hip fracture Current Visit: Yes Status: Acute Code(s): M84.459A - PATHOLOGICAL FRACTURE, HIP, UNSP, INIT ENCNTR FOR FRACTURE SNOMED Code(s): 397767168 (2) Breast cancer metastasized to bone Current Visit: Yes Status: Acute Code(s): C50.919 - MALIGNANT NEOPLASM OF UNSP SITE OF UNSPECIFIED FEMALE BREAST; C79.51 - SECONDARY MALIGNANT NEOPLASM OF BONE SNOMED Code(s): 30484756 (3) Fall Current Visit: Yes Status: Acute Code(s): W19.XXXA - UNSPECIFIED FALL, INITIAL ENCOUNTER SNOMED Code(s): 6914749 (4) Fracture, intertrochanteric, right femur Current Visit: Yes Status: Acute Code(s): S72.141A - DISPLACED INTERTROCHANTERIC FRACTURE OF RIGHT FEMUR, INIT SNOMED Code(s): 844585215 (5) Sprain of wrist Current Visit: Yes Status: Acute Code(s): S63.509A - UNSPECIFIED SPRAIN OF UNSPECIFIED WRIST, INITIAL ENCOUNTER SNOMED Code(s): 40061298 Plan: 1. N.p.o. after midnight 2. Continue bedrest and pain control. 3. Wrist brace ordered for right wrist sprain. May remove brace when resting. 4. Appreciate input from internal medicine and oncology. 5. Imaging is reviewed. Planning for closed reduction and intramedullary nailing of the right femur on 04/17/2024.
--- NOTE | 2024-04-16 12:23 | P.PN ---
Subjective Progress Note Date: 04/16/24 No new complaints. Discussed with ortho today, plan is for ORIF tomorrow AM. Oncology consulted today for diffuse metastatic lesions. Gen: In NAD, non-toxic HEENT: normocephalic, atraumatic, hearing acuity is intant, mucous membranes moist CVS: perfusing all extremities well, no pitting edema, Respiratory: symmetric chest expansion, no accessory muscle use, GI: soft, NTTP, ND, : no suprapubic tenderness, no CVA tenderness MSK/Derm: no rashes, cyanosis Neuro: CN II-XII intact, no motor weakness, Psych: cooperative, euthymic mood, judgment and insight is intact Hospital Course: 73-year-old woman with medical history of COPD, metastatic breast cancer to the bones, hypertension, hyperlipidemia, GERD presented for evaluation of mechanical fall resulting in hip fracture. In the emergency room, patient was afebrile, 122/74, heart rate 56, 100% on 2 L of nasal cannula. CBC demonstrates anemia down to 9.5, this is patient's baseline. Basic metabolic panel demonstrates creatinine of 1.9, close to patient's baseline of 1.7. Albumin is low. Coags are unremarkable. Head CT showed no acute bleed or mass effect with question of sclerotic masses throughout the calvarium, CT cervical spine showed no acute trauma with sclerotic metastases throughout the cervical spine, also demonstrated an incidental right pleural effusion. Wrist x-ray was normal. Hip/pelvic x-ray showed diffuse bone metastasis in the hips and pelvis as well as a pathologic displaced intertrochanteric fracture of the right hip. Chest x- ray showed a small stable pleural effusion on the right. Hip CT demonstrated pathologic comminuted displaced fracture of the proximal right femur as well as extensive lytic and blastic osseous metastatic lesions in the axial and appendicular skeleton. Femur x-ray again showed comminuted displaced intertrochanteric fracture of the proximal right femur. Case was discussed with the emergency room decision was made to admit the patient to the hospital for further evaluation with orthopedic surgery consultation. Assessment/plan: Preoperative evaluation Right hip fracture, pathological Metastatic breast cancer to the bone -Patient represents intermediate risk for intermediate risk procedure -Okay to proceed to surgery without further need of testing -Orthopedic surgery consultation is appreciated -Oncology consult is appreciated COPD without exacerbation -Resume patient's home DuoNebs, albuterol as needed Hypertension -Resume patient's atenolol Hyperlipidemia -Resume patient's statin GERD without esophagitis -Resume patient's Protonix, famotidine Constipation -Start bowel regimen: MiraLAX 17 g daily, Senokot-S 1 tab twice daily, bisacodyl suppository 10 mg daily as needed Patient is full code Defer DVT prophylaxis to the orthopedic surgery team Objective - Vital Signs Vital signs: Vital Signs Temp 98.9 F 04/16/24 07:16 Pulse 64 04/16/24 12:14 Resp 20 04/16/24 07:16 BP 101/60 04/16/24 07:16 Pulse Ox 94 L 04/16/24 07:16 FiO2 Intake & Output 04/15/24 04/16/24 04/16/24 18:59 06:59 18:59 Intake Total 480 590 Output Total 300 300 Balance 180 290 Weight 49.895 kg Intake: Oral 480 590 Output: Urine 300 300 Other: Voiding Method Indwelling Catheter Indwelling Catheter - Labs CBC & Chem 7: 04/15/24 13:13 04/15/24 13:13 Labs: Abnormal Lab Results - Last 24 Hours (Table) 04/15/24 04/15/24 04/15/24 Range/Units 13:13 13:13 13:13 RBC 3.11 L (3.80-5.40) m/uL Hgb 9.5 L (11.4-16.0) gm/dL Hct 30.4 L (34.0-46.0) % RDW 17.0 H (11.5-15.5) % APTT 21.4 L (22.0-30.0) sec Carbon Dioxide 21 L (22-30) mmol/L BUN 18 H (7-17) mg/dL Creatinine 1.89 H (0.52-1.04) mg/dL Glucose 116 H (74-99) mg/dL Total Protein 6.1 L (6.3-8.2) g/dL Albumin 3.0 L (3.5-5.0) g/dL
[2024-04-16] MEDS: HYDROcodone/APAP 7.5-325MG 1 EACH TAB PO PRN (16:44)
[2024-04-17] MEDS: IV FLUID CONTINUATION 1,000 ML IV ONE (08:40)
[2024-04-17] MEDS: DEXAMETHASONE SOD PHOSPHATE 4 MG/ML 1 ML VIAL IVP STA (08:50)
[2024-04-17] MEDS: ONDANSETRON 4 MG/2 ML VIAL IVP PRN (08:50)
[2024-04-17] MEDS ORDERED: fentaNYL (PF) 50 MCG/ML 2 ML AMP ONE (09:04)
[2024-04-17] MEDS ORDERED: MIDAZOLAM 2 MG/2 ML VIAL ONE (09:04)
[2024-04-17] MEDS ORDERED: TRANEXAMIC 1,000 MG/100ML-NACL PREMIX BAG ONE (09:04)
[2024-04-17] MEDS ORDERED: PHENYLEPHRINE 10 MG/ML VIAL ONE (09:04)
[2024-04-17] MEDS ORDERED: KETAMINE HCL IN 0.9 % NACL 50 MG/5 ML SYRINGE ONE (09:04)
--- NOTE | 2024-04-17 10:13 | P.OP ---
Date of Procedure: 04/17/24 Preoperative Diagnosis: Pathologic intertrochanteric fracture right hip Postoperative Diagnosis: Pathologic intertrochanteric fracture right hip Procedure(s) Performed: Closed reduction and intramedullary nailing right hip Implants: [employer] Intertan nail 125, 11.5 mm x 18 cm. [employer] Intertan integrated-interlocking lag screw, 90 mm lag screw, 85 mm compression screw. [employer] L-P screw, 5.0 mm x 30 mm. Anesthesia: spinal Surgeon: Tanvir Hurst Zig Zag Stitcher #1: Luda Song Estimated Blood Loss (ml): 100 Pathology: other (Intramedullary reamings) Condition: stable Disposition: PACU Indications for Procedure: This is a 73-year-old female sustained a ground-level fall at home. She has a history of breast cancer. X-rays demonstrated a intertrochanteric fracture of the right hip with suspicions for a pathologic fracture from metastatic breast cancer. Discussed the surgical nonsurgical treatment options with her at length I've recommended a close reduction and intramedullary nailing of the right hip. Also discussed that I will submit intramedullary reamings for pathologic diagnosis. For the suspected pathologic fracture. Operative Findings: The operative findings are consistent with a pathologic fracture of the right intertrochanteric hip Description of Procedure: The patient was seen in the preoperative area, consent was reviewed, and the operative site was marked with a skin marker. The surgical procedure was discussed at length with both the patient and the family at the bedside. All questions were answered to the best of my ability. The patient was brought to the operating room and placed on the fracture table. Anesthesia was administered by the anesthesia department. 2 g of Ancef were administered intravenously. The patient was placed supine on the fracture table with the fractured extremity in traction boot. The other extremity was placed in a well leg comer and the bony prominences were well padded. A universal timeout was then performed which confirmed the patient's name, surgical site, ALLERGIES, and consent. Fracture reduction was performed with a traction and abduction maneuver which was confirmed with fluoroscopy, both AP and lateral views.. After reduction was performed, the extremity was then prepped with ChloraPrep solution and draped in the usual sterile fashion. Utilizing fluoroscopy to identify the tip of the greater trochanter, a 3 cm longitudinal incision was made just proximal to the greater trochanter. Incision was carried through the fascia to the tip of the greater trochanter. Utilizing a curved awl, the entry point was created at the tip of the greater trochanter and centralized in the AP and lateral planes. These locations were confirmed by fluoroscopy. A guidewire was then inserted down the medullary canal. Sequentially reaming of the femur was performed to 13 mm distally and 17 mm proximally with the channel reamer. The reamings were sent to pathology in formalin to rule out metastatic breast cancer and a pathologic fracture. After reaming, appropriate size nail was inserted over the guidewire. The nail was inserted to the appropriate depth and the guidewire was removed. Placement of the moy was confirmed with both AP and lateral fluoroscopic views. The lag screw drill sleeve was placed in the jig and a small skin incision was made on the lateral aspect of the leg and the lag screw drill sleeve was locked into the guide. The 3.2 mm guide pin sleeve was inserted through the lag screw drill sleeve down to bone. A 3.2 mm distally threaded guidewire was inserted through the guide pin sleeve. The guidewire was inserted in the desired position in the femoral head, both anterior and posterior. The lag screw length cage was inserted over the guidepin to the back of the lag screw drill sleeve. Lag screw length was then measured from the cage. Next, the 7.0 mm compression screw starter drill was inserted in the lag screw drill sleeve beneath the guidepin. The compression screw starter drill was advanced under power until it abutted the back and of the lag screw drill sleeve. The 7.0 mm compression screw drill was inserted through the lag screw drill sleeve into the hole created by the compression screw starter drill. This was advanced under fluoroscopy to a depth 5 mm less and the measurement taken for the guidepin. The compression screw drill was removed and the antirotation bar was inserted into the same hole. The 3.2 mm guide pin sleeve was then removed from the drill guide. The lag screw drill was then inserted to a depth that was measured by the lag screw gauge. This was done under fluoroscopy. The lag screw was inserted over the guidewire to the appropriate depth using fluoroscopy. Traction was then released. The antirotation bar was then removed and the compression screw was advanced through the lag screw drill sleeve beneath the lag screw. This was advanced to the appropriate compression was achieved. The proximal drill guide was then removed and the distal drill guide was then inserted in the jig. Skin incision was made down to bone and the distal drill guide was then placed. Distal hole was then drilled with a 4.0 mm drill and measured to the appropriate depth. Distal screw was then placed. The entire assembly was then removed and final fluoroscopic x- rays were obtained. The wounds were then irrigated copiously with saline solution. Fascia was closed with 0-Vicryl. Subcutaneous tissues were closed with 2-0 Vicryl and the skin was closed with alejandro. Sterile dressings were applied. The patient was transported to the recovery room in stable condition. The information services assistant CLIFTON Saleem was required due the complexity of surgery the need for skilled surgical rn for positioning draping retraction and fracture reduction.
[2024-04-17] MEDS ORDERED: MAGNESIUM HYDROXIDE 2,400 MG/30 ML CUP PO PRN (10:30)
[2024-04-17] MEDS ORDERED: HYDROmorphone 0.5 MG/0.5 ML SYRINGE IVP PRN ×2 (10:30)
[2024-04-17] MEDS ORDERED: NALOXONE 0.4 MG/ML 1 ML VIAL IV PRN (10:30)
--- NOTE | 2024-04-17 11:46 | XR ---
EXAMINATION TYPE: XR Hip Limited RT DATE OF EXAM: 04/17/2024 11:36 AM COMPARISON: 04/15/2024 CLINICAL INDICATION: Female, 73 years old with history of Status post hip surgery, assess surgical al ignment; PHH, pain TECHNIQUE: XR Hip Limited RT; Frontal view FINDINGS: Post fixation changes, hardware is intact, alignment is appropriate. No new fracture improv ed alignment of the intertrochanteric fracture.. Postoperative changes of the soft tissues with subcu taneous gas. No evidence of any acute osseous pathology or joint dislocation. IMPRESSION: Hip arthroplasty with hardware intact and in appropriate alignment. No acute fracture. [facility], , 04/17/2024 11:44 AM
[2024-04-17] MEDS: SODIUM CHLORIDE 0.9% 1,000 ML IV SCH (12:32)
[2024-04-17] MEDS: HYDROmorphone 0.5 MG/0.5 ML SYRINGE IVP PRN (12:33)
--- NOTE | 2024-04-17 12:35 | FL ---
EXAMINATION TYPE: FL guidance operating room, XR Hip Complete RT DATE OF EXAM: 04/17/2024 11:55 AM COMPARISON: Pre Operative Images if available both CT/MRI or plain film CLINICAL INDICATION: Female, 73 years old with history of IT Nail Rt Hip; TECHNIQUE: FL guidance operating room, XR Hip Complete RT, multiple fluoroscopic images provided for procedure. DAP: 0.55728 mGym2 Gycm2 uGym2 cGycm2 or equivalent. FINDINGS: Fluoroscopic images during internal fixation demonstrate hardware in appropriate position. Hardware a ppears intact. No immediate complication identified. IMPRESSION: 1. No evidence for intraoperative complication. 2. Please see the operative/procedural note for further details. [facility], , 04/17/2024 12:32 PM
[2024-04-17] MEDS: TRANEXAMIC 1,000 MG/100ML-NACL 1,000 MG in SALINE 1 100ML.BAG IVPB ONE (13:18)
--- NOTE | 2024-04-17 14:45 | P.PN ---
Progress Note - Text Progress Note Date: 04/17/24 Attempted to see the patient today, however, she was still in surgery during my rounds.
--- NOTE | 2024-04-17 20:38 | P.PN ---
Progress Note - Text Progress Note Date: 04/17/24 We were asked to see patient because of breast cancer, concerns for pathological fracture. Patient was gone to surgery so, she was not seen in consult today. Did confirm with the pathology department that they were receiving tissue for examination. Patient does have history of metastatic breast cancer, bone metastases are known. Will see patient tomorrow in formal consult. Recommendations will follow. Thank you
[2024-04-17] MEDS: SENNOSIDES-DOCUSATE SODIUM 1 EACH TAB PO SCH (21:36)
[2024-04-18] MEDS: FAMOTIDINE 20 MG TAB PO SCH (09:15)
[2024-04-18] MEDS: APIXABAN 2.5 MG TABLET PO SCH (09:16)
[2024-04-18] MEDS: HYDROcodone/APAP 5-325MG 1 EACH TAB PO PRN (09:41)
--- NOTE | 2024-04-18 11:19 | P.PN ---
Subjective Progress Note Date: 04/18/24 This is a 73 year-old female who is admitted for a pathological right hip fracture. Patient is status post closed reduction and intramedullary nailing of the right hip. This is postoperative day #1 and patient is seen and evaluated at bedside today. Patient states that she has pain in the right leg and is unsure if she will be able to tolerate PT today. Patient states that the wrist is still slightly sore. Objective - Vital Signs Vital signs: Vital Signs Temp 98.1 F 04/18/24 07:16 Pulse 72 04/18/24 08:15 Resp 18 04/18/24 07:16 BP 105/55 04/18/24 07:16 Pulse Ox 82 L 04/18/24 07:16 FiO2 Intake & Output 04/17/24 04/18/24 04/18/24 18:59 06:59 18:59 Intake Total 1412 540 Output Total 550 1100 Balance 862 -560 Intake: IV 650 Oral 762 540 Output: Urine 450 1100 Estimated Blood Loss 100 Other: Voiding Method Indwelling Catheter Indwelling Catheter Indwelling Catheter # Bowel Movements 1 - Exam Vital signs are stable. Patient is in no acute distress and is alert and oriented 3. Calf is soft and nontender to palpation. Dressings are clean, dry, and intact. Patient has full foot and ankle motion without pain or difficulty. Sensation intact. Neurovascular status and circulatory status are intact. - Labs CBC & Chem 7: 04/15/24 13:13 04/15/24 13:13 Assessment and Plan Assessment: Status post closed reduction and intramedullary nailing for pathologic right hip fracture. (1) Pathologic hip fracture Current Visit: Yes Status: Acute Code(s): M84.459A - PATHOLOGICAL FRACTURE, HIP, UNSP, INIT ENCNTR FOR FRACTURE SNOMED Code(s): 457116242 (2) Breast cancer metastasized to bone Current Visit: Yes Status: Acute Code(s): C50.919 - MALIGNANT NEOPLASM OF UNSP SITE OF UNSPECIFIED FEMALE BREAST; C79.51 - SECONDARY MALIGNANT NEOPLASM OF BONE SNOMED Code(s): 04222859 (3) Fall Current Visit: Yes Status: Acute Code(s): W19.XXXA - UNSPECIFIED FALL, INITIAL ENCOUNTER SNOMED Code(s): 1526814 (4) Fracture, intertrochanteric, right femur Current Visit: Yes Status: Acute Code(s): S72.141A - DISPLACED INTERTROCHANTERIC FRACTURE OF RIGHT FEMUR, INIT SNOMED Code(s): 616060752 (5) Sprain of wrist Current Visit: Yes Status: Acute Code(s): S63.509A - UNSPECIFIED SPRAIN OF UNSPECIFIED WRIST, INITIAL ENCOUNTER SNOMED Code(s): 25769324 Plan: Continue routine postop care and pain control. Continue anticoagulation with Eliquis. 50% weightbearing with a walker. Wrist brace to right upper extremity. May remove when resting. Leave dressings in place for 7 days. Appreciate input from internal medicine and oncology. Anticipate discharge home with homecare or to ECF in the next 24-48 hours.
--- NOTE | 2024-04-18 15:03 | P.PN ---
Subjective Progress Note Date: 04/18/24 Subjective: Patient seen and examined at bedside. No acute events overnight. Claims that she has not gotten out of the bed yet. She is worried about pain. She is also not willing to get blood work because they have tried few times already. Claims that she is making adequate urine. Pertinent positives and negatives as discussed above, a complete review of systems was performed and all other systems are negative. Vitals Signs Reviewed. General: Nontoxic, no distress, appears at stated age Derm: Warm, dry, dressing clean, dry, intact Head: Atraumatic, normocephalic, symmetric Eyes: EOMI, no lid lag, anicteric sclera Mouth: No lip lesion, mucus membranes moist Cardiovascular: S1S2 reg, no murmur Lungs: CTA bilateral, no rhonchi, no rales, no accessory muscle use Abdominal: Soft, nontender to palpation, no guarding, no appreciable organomegaly Ext: No gross muscle atrophy, no edema, no contractures Neuro: CN II-XI grossly intact, no focal neuro deficits Psych: Alert, oriented, appropriate affect Data Reviewed Today: Pertinent Labs: No new labs available Imaging: No new imaging Assessment and Plan: Active: Pathological right hip fracture status post close reduction and intramedullary nailing Metastatic breast cancer to the bone -Pain control with oral [place] as needed, IV Dilaudid as needed, monitor for sedation -Senna nightly, milk of magnesia as needed for bowel regimen -On Eliquis 2.5 twice daily for DVT prophylaxis -Oncology also following -CBC ordered, patient declining Hypertension -Atenolol 25 twice daily GERD -Continue Protonix 40 daily, home famotidine 20 every 48 hours, Tums 500 daily Hypothyroidism -Continue Synthroid 100 mcg daily Dyslipidemia -Continue pravastatin 40 daily Chronic kidney disease stage III? -Baseline creatinine possibly around 1.7 -Repeat BMP ordered however patient is declining Code status: Full code Anticipated discharge place: Pending clinical course Anticipated discharge time: Pending clinical course Objective - Vital Signs Vital signs: Vital Signs Temp 98.3 F 04/18/24 12:21 Pulse 75 04/18/24 12:21 Resp 18 04/18/24 12:21 BP 109/58 04/18/24 12:21 Pulse Ox 93 L 04/18/24 12:21 FiO2 Intake & Output 04/17/24 04/18/24 04/18/24 18:59 06:59 18:59 Intake Total 1412 540 Output Total 550 1100 Balance 862 -560 Intake: IV 650 Oral 762 540 Output: Urine 450 1100 Estimated Blood Loss 100 Other: Voiding Method Indwelling Catheter Indwelling Catheter Indwelling Catheter # Bowel Movements 1 - Labs CBC & Chem 7: 04/15/24 13:13 04/15/24 13:13
--- NOTE | 2024-04-19 00:19 | P.CONS ---
History of Present Illness - Reason for Consult Consult date: 04/18/24 pathological fracture Requesting physician: Marilyn Paul - Chief Complaint fall with fracture - History of Present Illness Mrs. Andino is a 73-year-old female patient of Dr. Bennett with a history of stage IIb right breast cancer diagnosed in September 2010, treated with mastectomy and axillary node dissection. She was on SWOG trial, indeterminate recurrence score on Oncotype DX, she was randomized to chemotherapy followed by hormonal therapy. She received 4 cycles of TC which she tolerated well, she then started anastrozole. She had a prophylactic left mastectomy in August 2011. She did well until November 2015 when she presented with worsening dyspnea. CT of the chest 12/08/2015 revealed bilateral pleural effusion with left upper lobe scarring, diagnostic thoracentesis was positive for metastatic carcinoma, consistent with a breast primary, ER positive. 12/19/[address] CAP revealed evidence of bone metastasis and bilateral pleural effusions. 12/25/15 she started Faslodex, Ibrance and Xgeva (eventually this was changed to Fosamax). Patient had follow- up imaging revealing stable disease for 8 years, until January 2024 when she had a worsening right pleural effusion. Right thoracentesis performed, cytology positive for metastatic carcinoma, consistent with a breast primary, ER/MS positive HER2/gennaro 2+ positive by IHC but negative by FISH. She was started on truqap And Faslodex February 2024, this was ultimately discontinued in March due to poor tolerance. Patient had plans to start IV treatment with Enhertu after port placement next week. Unfortunately patient had a fall at home, she is currently admitted, she was taken to surgery and is doing well postop, pathology is pending on the specimen. She has no other acute complaints when seen today. Review of Systems 10 point review of systems is negative except as stated in HPI Past Medical History Past Medical History: Cancer, COPD, GERD/Reflux, Hypertension, Musculoskeletal Disorder, Pulmonary Embolus (PE), Renal Disease, Thyroid Disorder Additional Past Medical History / Comment(s): hx. PE after childbirth yrs. ago, "bleeds easily" per daughter but no condition that she knows of, Breast cancer diagnosed 10 -15 yrs ago, current bone cancer-getting chemo, daughter not sure if is mets or new, Chronic back pain, "6 deteriorating discs". 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 has occasional dysphagia History of Any Multi-Drug Resistant Organisms: None Reported Past Surgical History: Breast Surgery, Hysterectomy Additional Past Surgical History / Comment(s): Bilateral mastectomy. Past Anesthesia/Blood Transfusion Reactions: No Reported Reaction, Motion Sickness Smoking Status: Current every day smoker, Former smoker - Past Family History Son(s) Family Medical History: Cancer Medications and Allergies Home Medications Medication Instructions Recorded Confirmed Type Cetirizine HCl 10 mg PO DAILY 08/31/21 04/15/24 History Famotidine 40 mg PO DAILY 08/31/21 04/15/24 History Pantoprazole [Protonix] 40 mg PO DAILY 08/31/21 04/15/24 History Albuterol Inhaler [Ventolin Hfa 2 puff INHALATION RT-Q4H PRN 03/30/24 04/15/24 History Inhaler] Diphenox-Atrop 2.5-0.025 mg 1 tab PO QID PRN 03/30/24 04/15/24 History [Lomotil] Ipratropium-Albuterol Nebulize 3 ml INHALATION RT-QID 03/30/24 04/15/24 History [Duoneb 0.5 mg-3 mg/3 ml Soln] Pravastatin Sodium [Pravachol] 40 mg PO DAILY 03/30/24 04/15/24 History atenoloL [Tenormin] 25 mg PO BID 03/30/24 04/15/24 History Calcium 500mg 500 mg PO DAILY 04/15/24 04/15/24 History HYDROcodone/APAP 7.5-325MG [[place] 1 tab PO Q6HR PRN 04/15/24 04/15/24 History 7.5-325] Levothyroxine Sodium [Synthroid] 100 mcg PO DAILY 04/15/24 04/15/24 History Lidocaine-Prilocaine Cream [[place] 1 applic TOPICAL DIRECTED PRN 04/15/24 04/15/24 History Cream 2.5%/2.5%] Loperamide [Imodium] 2 - 4 mg PO Q6H 04/15/24 04/15/24 History Ondansetron Odt [Zofran Odt] 4 - 8 mg PO Q4H PRN 04/15/24 04/15/24 History Apixaban [Eliquis] 2.5 mg PO BID 30 Days #60 tab 04/17/24 Rx HYDROcodone/APAP 5-325MG [[place] 1 tab PO Q6HR PRN #28 tab 04/17/24 Rx 5-325] Sennosides [Senokot] 2 tab PO DAILY PRN #60 tablet 04/17/24 Rx Allergies Allergy/AdvReac Type Severity Reaction Status Date / Time No Known Allergies Allergy Verified 04/17/24 08:42 Physical Exam Vitals: Vital Signs Temp Pulse Pulse Pulse Resp BP Pulse Ox 04/18/24 08:15 72 04/18/24 08:05 68 04/18/24 07:16 98.1 F 76 18 105/55 82 L 04/18/24 02:00 98.1 F 89 12 106/57 92 L 04/17/24 21:44 98.4 F 96 12 93/54 93 L 04/17/24 21:36 95 89/54 91 L 04/17/24 18:59 90 18 04/17/24 18:52 92 18 04/17/24 15:38 72 04/17/24 15:23 66 04/17/24 12:55 98.0 F 64 119/64 99 04/17/24 12:45 62 106/55 100 04/17/24 12:15 57 L 126/70 100 04/17/24 11:48 94 L 04/17/24 11:45 66 16 106/65 88 L 04/17/24 11:15 66 16 91/54 96 04/17/24 11:01 64 16 90/55 96 04/17/24 10:45 65 16 89/54 100 04/17/24 10:39 68 16 87/51 100 04/17/24 10:24 97 F L 60 16 97/50 100 Intake and Output 04/17/24 04/18/24 04/18/24 22:59 06:59 14:59 Intake Total 762 540 Output Total 350 1100 Balance 412 -560 Intake: Oral 762 540 Output: Urine 350 1100 Other: Voiding Method Indwelling Catheter # Bowel Movements 1 - Constitutional General appearance: average body habitus, cooperative, no acute distress - EENT Eyes: anicteric sclerae, EOMI ENT: hearing grossly normal, normal oropharynx - Neck Neck: no lymphadenopathy - Respiratory Respiratory: bilateral: CTA - Cardiovascular Rhythm: regular Heart sounds: normal: S1, S2 Abnormal Heart Sounds: no systolic murmur, no diastolic murmur, no rub, no S3 Gallop, no S4 Gallop, no click, no other leg Peripheral Edema: bilateral: None - Gastrointestinal General gastrointestinal: no absent bowel sounds, no decreased bowel sounds, no distended, no hepatomegaly, no hyperactive bowel sounds, normal bowel sounds, no organomegaly, no rigid, no scaphoid, soft, no splenomegaly, no tenderness, no umbilical hernia, no ventral hernia - Integumentary Integumentary: normal - Neurologic Neurologic: CNII-XII intact - Psychiatric Psychiatric: A&O x's 3, appropriate affect, intact judgment & insight Results CBC & Chem 7: 04/15/24 13:13 04/15/24 13:13 Assessment and Plan (1) Breast cancer metastasized to bone Current Visit: Yes Status: Acute Code(s): C50.919 - MALIGNANT NEOPLASM OF UNSP SITE OF UNSPECIFIED FEMALE BREAST; C79.51 - SECONDARY MALIGNANT NEOPLASM OF BONE SNOMED Code(s): 38949728 (2) Fracture, intertrochanteric, right femur Current Visit: Yes Status: Acute Code(s): S72.141A - DISPLACED INTERTROCHANTERIC FRACTURE OF RIGHT FEMUR, INIT SNOMED Code(s): 639818277 Plan: Right femur fracture -Fall at home, pt also has some wrist pain -Patient has had surgery. Doing well post op -Pending pathology. If it is found to be a pathological fracture, patient will be for referred to Radiation Oncology. -Defer postoperative course to Orthopedic Surgeon. Metastatic breast cancer -Diagnosis and clinical course as described in HPI -Patient had disease progression in January 2024. She was started on a treatment in February which unfortunately, she did not tolerate well. She was to start Enhertu next week. It was explained to patient that treatment will be on hold until she is adequately healed from surgery. She verbalized understanding. Doctor attests: I performed a history and physical examination of this patient, developed impression and plan of care. Discussed with dictator. I agree with dictators note, documented as a scribe
[2024-04-19] MEDS ORDERED: ZINC OXIDE PASTE (Z-GUARD) 1 APPLIC TOPICAL PRN (04:46)
[2024-04-19] MEDS: ALTEPLASE 2 MG VIAL (CATHFLO) IV STA (10:49)
[2024-04-19 12:28] LABS: Anisocytosis Slight; Basophils % (A) 0 %; Eosinophils # (A) 0.2 k/uL (0-0.7); Eosinophils % (A) 3 %; Hypochromasia Slight; Lymphocytes # (A) 0.6 k/uL (1.0-4.8); Lymphocytes % (A) 9 %; MCH 31.5 pg (25.0-35.0); MCHC 31.9 g/dL (31.0-37.0); MCV 98.6 fL (80.0-100.0); Macrocytosis Slight; Mean Platelet Volume 7.4; Monocytes # (A) 0.3 k/uL (0-1.0); Monocytes % (A) 4 %; Neutrophils # (A) 5.8 k/uL (1.3-7.7); Neutrophils % (A) 83 %; Platelet Count 257 k/uL (150-450); RBC 1.67 m/uL (3.80-5.40); RDW 17.3 % (11.5-15.5)
[2024-04-19 12:41] LABS: HCT 16.5 % (34.0-46.0); HGB 5.3 gm/dL (11.4-16.0)
--- NOTE | 2024-04-19 13:33 | P.PN ---
Subjective Progress Note Date: 04/19/24 This is a 73 year-old female who is admitted for a pathological right hip fracture. Patient is status post closed reduction and intramedullary nailing of the right hip. This is postoperative day #2 and patient is seen and evaluated at bedside today. Patient states that her pain is well-controlled and she was able to sit up in a chair with physical therapy today. Patient states that her wrist pain is improving. Objective - Vital Signs Vital signs: Vital Signs Temp 97.7 F 04/19/24 12:15 Pulse 76 04/19/24 12:15 Resp 20 04/19/24 12:15 BP 114/66 04/19/24 12:15 Pulse Ox 91 L 04/19/24 12:15 FiO2 Intake & Output 04/18/24 04/19/24 04/19/24 18:59 06:59 18:59 Intake Total 660 Output Total 900 750 Balance -900 -90 Intake: Intake, IV Titration 660 Amount Sodium Chloride 0.9% 1, 660 000 ml @ 60 mls/hr IV . [id number] [facility] Rx#:[id number] Output: Urine 900 750 Other: Voiding Method Indwelling Catheter Indwelling Catheter Indwelling Catheter # Bowel Movements 1 - Exam Vital signs are stable. Patient is in no acute distress and is alert and oriented 3. Calf is soft and nontender to palpation. Dressings are clean, dry, and intact. Patient has full foot and ankle motion without pain or difficulty. Sensation intact. Neurovascular status and circulatory status are intact. Wrist brace in place to right upper extremity. Patient has good motion of the right hand. Right upper extremity is warm and well perfused. - Labs CBC & Chem 7: 04/19/24 12:20 04/15/24 13:13 Labs: Abnormal Lab Results - Last 24 Hours (Table) 04/19/24 Range/Units 12:20 RBC 1.67 L (3.80-5.40) m/uL Hgb 5.3 L* D (11.4-16.0) gm/dL Hct 16.5 L* (34.0-46.0) % RDW 17.3 H (11.5-15.5) % Lymphocytes # 0.6 L (1.0-4.8) k/uL Assessment and Plan Assessment: Status post closed reduction and intramedullary nailing for pathologic right hip fracture. (1) Pathologic hip fracture Current Visit: Yes Status: Acute Code(s): M84.459A - PATHOLOGICAL FRACTURE, HIP, UNSP, INIT ENCNTR FOR FRACTURE SNOMED Code(s): 140856998 (2) Breast cancer metastasized to bone Current Visit: Yes Status: Acute Code(s): C50.919 - MALIGNANT NEOPLASM OF U NSP SITE OF UNSPECIFIED FEMALE BREAST; C79.51 - SECONDARY MALIGNANT NEOPLASM OF BONE SNOMED Code(s): 62045784 (3) Fall Current Visit: Yes Status: Acute Code(s): W19.XXXA - UNSPECIFIED FALL, INITIAL ENCOUNTER SNOMED Code(s): 5328597 (4) Fracture, intertrochanteric, right femur Current Visit: Yes Status: Acute Code(s): S72.141A - DISPLACED INTERTROCHAN TERIC FRACTURE OF RIGHT FEMUR, INIT SNOMED Code(s): 449409810 (5) Sprain of wrist Current Visit: Yes Status: Acute Code(s): S63.509A - UNSPECIFIED SPRAIN OF UNSPECIFIED WRIST, INITIAL ENCOUNTER SNOMED Code(s): 99314876 Plan: Continue routine postop care and pain control. Continue anticoagulation with Eliquis. Hgb today is 5.3. Repeat CBC pending. Patient is asymptomatic. 50% weightbearing with a walker. Wrist brace to right upper extremity. May remove when resting. Leave dressings in place for 7 days. Appreciate input from internal medicine and oncology. Anticipate discharge home with homecare in the next 24-48 hours.
[2024-04-19 13:50] LABS: Anisocytosis Slight; HCT 20.3 % (34.0-46.0); MCH 30.4 pg (25.0-35.0); MCHC 30.9 g/dL (31.0-37.0); MCV 98.3 fL (80.0-100.0); Macrocytosis Slight; Platelet Count 270 k/uL (150-450); RBC 2.07 m/uL (3.80-5.40); RDW 17.4 % (11.5-15.5); WBC 6.6 k/uL (3.8-10.6)
[2024-04-19 13:56] LABS: HGB 6.3 gm/dL (11.4-16.0)
--- NOTE | 2024-04-19 15:39 | P.PN ---
Subjective Progress Note Date: 04/19/24 Subjective: Patient seen and examined at bedside. No acute events overnight. Got out of bed into the chair with assistance. Still having significant pain in the right leg. Denies any urinary complaints at all. Pertinent positives and negatives as discussed above, a complete review of ana parnell was performed and all other systems are negative. Vitals Signs Reviewed. General: Nontoxic, no distress, appears at stated age Derm: Warm, dry, dressing clean, dry, intact Head: Atraumatic, normocephalic, symmetric Eyes: EOMI, no lid lag, anicteric sclera Mouth: No lip lesion, mucus membranes moist Cardiovascular: S1S2 reg, no murmur Lungs: CTA bilateral, no rhonchi, no rales, no accessory muscle use Abdominal: Soft, nontender to palpation, no guarding, no appreciable organomegaly Ext: No gross muscle atrophy, no edema, no contractures Neuro: CN II-XI grossly intact, no focal neuro deficits Psych: Alert, oriented, appropriate affect Data Reviewed Today: Pertinent Labs: Hemoglobin 6.3, BMP pending will be reviewed when available Imaging: No new imaging Assessment and Plan: Active: Pathological right hip fracture status post close reduction and intramedullary nailing Metastatic breast cancer to the bone Acute blood loss anemia, anticipated outcome of surgery -Pain control with oral [place] as needed, IV Dilaudid as needed, monitor for sedation -Senna nightly, milk of magnesia as needed for bowel regimen -On Eliquis 2.5 twice daily for DVT prophylaxis -Oncology also following -1 unit PRBCs pending -Patient is not having any active bleed, should be continued on DVT prophylaxis Hypertension -Atenolol 25 twice daily GERD -Continue Protonix 40 daily, home famotidine 20 every 48 hours, Tums 500 daily Hypothyroidism -Continue Synthroid 100 mcg daily Dyslipidemia -Continue pravastatin 40 daily Chronic kidney disease stage III? -Baseline creatinine possibly around 1.7 -Repeat BMP pending Code status: Full code Anticipated discharge place: Subacute rehab Anticipated discharge time: Pending clinical course Objective - Vital Signs Vital signs: Vital Signs Temp 97.4 F L 04/19/24 15:32 Pulse 81 04/19/24 15:32 Resp 16 04/19/24 15:32 BP 100/64 04/19/24 15:32 Pulse Ox 95 04/19/24 15:32 FiO2 Intake & Output 03/12/25 03/13/25 03/13/25 18:59 06:59 18:59 Intake Total 660 0 Output Total 900 750 Balance -900 -90 0 Intake: Intake, IV Titration 660 Amount Sodium Chloride 0.9% 1, 660 000 ml @ 60 mls/hr IV . [id number] [facility] Rx#:[id number] Blood Product 0 Unit 0 Output: Urine 900 750 Other: Voiding Method Indwelling Catheter Indwelling Catheter Indwelling Catheter # Bowel Movements 1 - Labs CBC & Chem 7: 04/19/24 13:13 04/15/24 13:13 Labs: Abnormal Lab Results - Last 24 Hours (Table) 04/16/24 04/19/24 04/19/24 Range/Units 18:41 12:20 13:13 RBC 1.67 L 2.07 L (3.80-5.40) m/uL Hgb 5.3 L* D 6.3 L* (11.4-16.0) gm/dL Hct 16.5 L* 20.3 L (34.0-46.0) % MCHC 30.9 L (31.0-37.0) g/dL RDW 17.3 H 17.4 H (11.5-15.5) % Lymphocytes # 0.6 L (1.0-4.8) k/uL Crossmatch See Detail
--- NOTE | 2024-04-19 18:02 | P.PN ---
Subjective Progress Note Date: 04/19/24 Principal diagnosis: Metastatic breast cancer, s/p hip fracture surgical repair after a fall In f/u today pt denies an c/o on a focused ROS, no bleeding, she is tolerating oral intake Objective - Vital Signs Vital signs: Vital Signs Temp 98.3 F 04/19/24 15:52 Pulse 81 04/19/24 15:52 Resp 16 04/19/24 15:52 BP 116/71 04/19/24 15:52 Pulse Ox 95 04/19/24 15:52 FiO2 Intake & Output 04/18/24 04/19/24 04/19/24 18:59 06:59 18:59 Intake Total 660 310 Output Total 900 750 250 Balance -900 -90 60 Intake: Intake, IV Titration 660 Amount Sodium Chloride 0.9% 1, 660 000 ml @ 60 mls/hr IV . [id number] [facility] Rx#:[id number] Blood Product 310 Rc As-1 Unit 310 [id number] Output: Urine 900 750 250 Other: Voiding Method Indwelling Catheter Indwelling Catheter Indwelling Catheter # Bowel Movements 1 - Constitutional General appearance: Present: average body habitus, cooperative, no acute distress - EENT Eyes: Present: anicteric sclerae, EOMI ENT: Present: hearing grossly normal - Respiratory Details: resp unlabored - Cardiovascular Details: skin warm, dry - Peripheral edema leg Peripheral Edema: bilateral: None - Neurologic Neurologic: Present: CNII-XII intact - Musculoskeletal Musculoskeletal Comment(s): rt hip incision is without significant bruising - Psychiatric Psychiatric: Present: A&O x's 3, appropriate affect, intact judgment & insight - Labs CBC & Chem 7: 04/19/24 13:13 04/15/24 13:13 Labs: Abnormal Lab Results - Last 24 Hours (Table) 04/16/24 04/19/24 04/19/24 Range/Units 18:41 12:20 13:13 RBC 1.67 L 2.07 L (3.80-5.40) m/uL Hgb 5.3 L* D 6.3 L* (11.4-16.0) gm/dL Hct 16.5 L* 20.3 L (34.0-46.0) % MCHC 30.9 L (31.0-37.0) g/dL RDW 17.3 H 17.4 H (11.5-15.5) % Lymphocytes # 0.6 L (1.0-4.8) k/uL Crossmatch See Detail Assessment and Plan (1) Breast cancer metastasized to bone Current Visit: Yes Status: Acute Code(s): C50.919 - MALIGNANT NEOPLASM OF UNSP SITE OF UNSPECIFIED FEMALE BREAST; C79.51 - SECONDARY MALIGNANT NEOPLASM OF BONE SNOMED Code(s): 35402313 (2) Fracture, intertrochanteric, right femur Current Visit: Yes Status: Acute Code(s): S72.141A - DISPLACED INTERTROCHANTERIC FRACTURE OF RIGHT FEMUR, INIT SNOMED Code(s): 059833623 Plan: Right femur fracture -Fall at home -Wrist pain as well, no fracture -Patient has had surgery on hip. Doing well post op -Pending pathology. If it is found to be a pathological fracture, patient will be for referred to Radiation Oncology. -Defer postoperative course to Orthopedic Surgeon. Metastatic breast cancer -Diagnosis and clinical course as described in HPI -Patient had disease progression in January 2024. She was started on a treatment in February which unfortunately, she did not tolerate well. Clarification she started Enhertu 04/10/24. She is in [place] currently. -Informed daughter that treatment will be on hold until she is adequately healed from surgery. She verbalized understanding. Chemo induced anemia --Pt is in [place] -Hgb 5.3-1 unit PRBCs ordered. -CBC daily -Transfuse for Hgb <7 or if symptomatic Doctor attests: I performed a history and physical examination of this patient, developed impression and plan of care. Discussed with dictator. I agree with dictators note, documented as a scribe
[2024-04-19 21:17] LABS: BUN/Creat Ratio 10.33 Ratio (12.00-20.00); Blood Urea Nitrogen 18.6 mg/dL (9.0-27.0); Calcium 7.9 mg/dL (8.7-10.3); Carbon Dioxide 21.7 mmol/L (21.6-31.8); Chloride 110 mmol/L (96-109); Glucose 90 mg/dL (70-110); Magnesium 1.8 mg/dL (1.5-2.4); Potassium 3.6 mmol/L (3.5-5.5); Sodium 140 mmol/L (135-145)
[2024-04-20 08:24] VITALS: TEMP 98.7
[2024-04-20 08:38] LABS: Basophils # (A) 0.03 X 10*3/uL (0.00-0.10); Basophils % (A) 0.6 %; Eosinophils # (A) 0.27 X 10*3/uL (0.04-0.35); Eosinophils % (A) 5.6 %; HCT 23.2 % (37.2-46.3); HGB 7.7 g/dL (12.0-15.0); Lymphocytes # (A) 0.48 X 10*3/uL (0.90-5.00); MCH 31.8 pg (27.0-32.0); MCHC 33.2 g/dL (32.0-37.0); MCV 95.9 FL (80.0-97.0); Monocytes # (A) 0.26 X 10*3/uL (0.20-1.00); Monocytes % (A) 5.4 %; NRBC Per 100 WBC 0.02 X 10*3/uL (0.00-0.01); Neutrophils # (A) 3.72 X 10*3/uL (1.80-7.70); Neutrophils % (A) 77.6 %; Platelet Count 215 X 10*3/uL (140-440); RBC 2.42 X 10*6/uL (4.10-5.20); RDW 16.8 % (11.5-14.5)
[2024-04-20 08:44] LABS: BUN/Creat Ratio 9.18 Ratio (12.00-20.00); Blood Urea Nitrogen 15.6 mg/dL (9.0-27.0); Chloride 112 mmol/L (96-109); Glucose 86 mg/dL (70-110); Potassium 4.1 mmol/L (3.5-5.5); Sodium 140 mmol/L (135-145)
[2024-04-20 08:45] LABS: Calcium 7.5 mg/dL (8.7-10.3); Carbon Dioxide 19.6 mmol/L (21.6-31.8)
--- NOTE | 2024-04-20 09:10 | P.PN ---
Progress Note - Text Progress Note Date: 04/20/24 Orthopedics: History of present illness: Patient is a very pleasant 73-year-old female who is seen examined for follow-up evaluation of her right hip. She is status post closed reduction intramedullary nailing of the right hip for pathological right hip fracture. She states her pain in her right hip has been adequately controlled. Her [place] catheter continues to be intact. We will plan to do discontinue the [place] catheter today. Patient is planning for discharge home with home care. She has not been cleared for discharge home as her WBC continues to be low. Currently her WBC is 4.80. She was also anemic yesterday and received a unit. Her current hemoglobin is 7.7. She is cleared from an orthopedic standpoint. She is waiting for clearance by medicine. She continues to be seen by oncology as well. She continues to utilize a splint for her right wrist and feels her right wrist pain continues to improve. She is not currently experiencing any significant pain at the right wrist. Physical Exam Intramedullary [place]: Status post surgical day number 3 Patient is examined lying in bed Patient is awake and alert, and oriented 3 Vital signs stable Good chest excursion with deep inspiration and expiration; patient currently on O2 nasal cannula No signs or symptoms of DVT; no calf pain Dressing of the right hip is clean, dry, and intact; no erythema, purulence, or signs of infection No pain with palpation over the surgical sites Dorsiflexion, plantarflexion, and extensor hallucis longus positive sustained bilaterally Neurovascularly intact bilateral lower extremities Manriquez catheter intact Right wrist splint intact Assessment: Status post closed reduction intramedullary nail fixation for right pathologic hip fracture Right hip pain History of breast cancer metastasized to bone Status post fall Right wrist sprain Anemia Hypertension Dyslipidemia Hypothyroidism Chronic kidney disease Plan: 1. Patient is cleared for discharge home with home health care from an orthopedic standpoint. She will continue with anticoagulation with Eliquis. She may continue 50% weightbearing on the right lower extremity with assistance of a walker. Keep dressings over the right hip clean, dry, and intact over the next 7 days. She may continue to utilize wrist brace of her right upper extremity for comfort and support and may remove brace with rest. 2. The patient will continue be seen and examined by multiple medical providers including medicine and oncology and will need clearance by them prior to discharge home
[2024-04-20 13:01] VITALS: BP 108/69; PULSE 75; RESP 22
--- NOTE | 2024-04-20 13:39 | P.DS ---
Providers Date of admission: 04/15/24 13:45 Expected date of discharge: 04/20/24 Attending physician: Marilyn Paul MD Consults: 04/15/24 13:58 Consult Physician Urgent Consulting Provider: Tanvir Hurst Consult Reason/Comments: Right IT fracture Do you want consulting provider notified?: Yes 04/16/24 11:32 Consult Physician Routine Consulting Provider: Gaston Barragan Consult Reason/Comments: pathologic fracture, met breast cancer to bone Do you want consulting provider notified?: Yes Primary care physician: Demario Gomez Hospital Course: Discharge Diagnosis: Pathological right hip fracture status post close reduction and intramedullary nailing Metastatic breast cancer to the bone Acute blood loss anemia, anticipated outcome of surgery Hypertension GERD Hypothyroidism Dyslipidemia Chronic kidney disease stage III Hospital Course: 73-year-old woman with medical history of COPD, metastatic breast cancer to the bones, hypertension, hyperlipidemia, GERD presented for evaluation of mechanical fall resulting in hip fracture. In the emergency room, patient was afebrile, 122/74, heart rate 56, 100% on 2 L of nasal cannula. CBC demonstrates anemia down to 9.5, this is patient's baseline. Basic metabolic panel demonstrates creatinine of 1.9, close to patient's baseline of 1.7. Albumin is low. Coags are unremarkable. Head CT showed no acute bleed or mass effect with question of sclerotic masses throughout the calvarium, CT cervical spine showed no acute trauma with sclerotic metastases throughout the cervical spine, also demonstrated an incidental right pleural effusion. Wrist x-ray was normal. Hip/pelvic x-ray showed diffuse bone metastasis in the hips and pelvis as well as a pathologic displaced intertrochanteric fracture of the right hip. Chest x- ray showed a small stable pleural effusion on the right. Hip CT demonstrated pathologic comminuted displaced fracture of the proximal right femur as well as extensive lytic and blastic osseous metastatic lesions in the axial and appendicular skeleton. Femur x-ray again showed comminuted displaced intertrochanteric fracture of the proximal right femur. Case was discussed with the emergency room decision was made to admit the patient to the hospital for further evaluation with orthopedic surgery consultation. Oncology was also consulted. Patient underwent close reduction with intramedullary nailing. Had anticipated blood loss after surgery, had 1 unit of PRBCs. Renal function stayed stable. Patient being discharged home with home care. Patient seen and examined at bedside. Vital signs reviewed and stable. General: Nontoxic, no distress, appears at stated age Derm: Warm, dry, dressing clean, dry, intact Head: Atraumatic, normocephalic, symmetric Eyes: EOMI, no lid lag, anicteric sclera Mouth: No lip lesion, mucus membranes moist Cardiovascular: S1S2 reg, no murmur Lungs: CTA bilateral, no rhonchi, no rales, no accessory muscle use Abdominal: Soft, nontender to palpation, no guarding, no appreciable organomegaly Ext: No gross muscle atrophy, no edema, no contractures Neuro: CN II-XI grossly intact, no focal neuro deficits Psych: Alert, oriented, appropriate affect A total of 32 minutes of time were spent preparing this complex discharge summary. Patient was discharged on 04/20/2024 at 1156. Patient Condition at Discharge: Fair Plan - Discharge Summary Discharge Rx Participant: Yes New Discharge Prescriptions: New Apixaban [Eliquis] 2.5 mg PO BID 30 Days #60 tab Sennosides [Senokot] 2 tab PO DAILY PRN #60 tablet PRN Reason: Constipation HYDROcodone/APAP 5-325MG [[place] 5-325] 1 tab PO Q6HR PRN #28 tab PRN Reason: Pain Continue Pantoprazole [Protonix] 40 mg PO DAILY Cetirizine HCl 10 mg PO DAILY Pravastatin Sodium [Pravachol] 40 mg PO DAILY atenoloL [Tenormin] 25 mg PO BID Ipratropium-Albuterol Nebulize [Duoneb 0.5 mg-3 mg/3 ml Soln] 3 ml INHALATION RT-QID Calcium 500mg 500 mg PO DAILY Loperamide [Imodium] 2 - 4 mg PO Q6H Ondansetron Odt [Zofran ODT] 4 - 8 mg PO Q4H PRN PRN Reason: Nausea Famotidine 40 mg PO DAILY Diphenox-Atrop 2.5-0.025 mg [Lomotil] 1 tab PO QID PRN PRN Reason: Diarrhea Albuterol Inhaler [Ventolin Hfa Inhaler] 2 puff INHALATION RT-Q4H PRN PRN Reason: Shortness Of Breath Levothyroxine Sodium [Synthroid] 100 mcg PO DAILY Lidocaine-Prilocaine Cream [Emla Cream 2.5%/2.5%] 1 applic TOPICAL DIRECTED PRN PRN Reason: port access HYDROcodone/APAP 7.5-325MG [[place] 7.5-325] 1 tab PO Q6HR PRN PRN Reason: Moderate Pain (Scale 4 To 6) Discharge Medication List Cetirizine HCl 10 mg PO DAILY 08/31/21 [History] Famotidine 40 mg PO DAILY 08/31/21 [History] Pantoprazole [Protonix] 40 mg PO DAILY 08/31/21 [History] Albuterol Inhaler [Ventolin Hfa Inhaler] 2 puff INHALATION RT-Q4H PRN 03/30/24 [History] Diphenox-Atrop 2.5-0.025 mg [Lomotil] 1 tab PO QID PRN 03/30/24 [History] Ipratropium-Albuterol Nebulize [Duoneb 0.5 mg-3 mg/3 ml Soln] 3 ml INHALATION RT-QID 03/30/24 [History] Pravastatin Sodium [Pravachol] 40 mg PO DAILY 03/30/24 [History] atenoloL [Tenormin] 25 mg PO BID 03/30/24 [History] Calcium 500mg 500 mg PO DAILY 04/15/24 [History] HYDROcodone/APAP 7.5-325MG [[place] 7.5-325] 1 tab PO Q6HR PRN 04/15/24 [History] Levothyroxine Sodium [Synthroid] 100 mcg PO DAILY 04/15/24 [History] Lidocaine-Prilocaine Cream [Emla Cream 2.5%/2.5%] 1 applic TOPICAL DIRECTED PRN 04/15/24 [History] Loperamide [Imodium] 2 - 4 mg PO Q6H 04/15/24 [History] Ondansetron Odt [Zofran ODT] 4 - 8 mg PO Q4H PRN 04/15/24 [History] Apixaban [Eliquis] 2.5 mg PO BID 30 Days #60 tab 04/17/24 [Rx] HYDROcodone/APAP 5-325MG [[place] 5-325] 1 tab PO Q6HR PRN #28 tab 04/17/24 [Rx] Sennosides [Senokot] 2 tab PO DAILY PRN #60 tablet 04/17/24 [Rx] Follow up Appointment(s)/Referral(s): Gaston Barragan [STAFF PHYSICIAN] - 05/14/24 9:00 am Demario Gomez MD [Primary Care Provider] - 04/26/24 9:30 am Tanvir Hurst DO [Doctor of Osteopathic Medicine] - 05/02/24 2:05 pm Patient Instructions/Handouts: Hip Fracture (GEN) Activity/Diet/Wound Care/Special Instructions: 50% weightbearing with walker. Leave dressing intact. Dressing may be removed by home care nurse or by patient in 7 days. Then change dressing twice daily until follow up. May shower with initial dressing intact and after removal. If dressing become saturated, please remove. Marion to be removed in 10-14 days. Please take Eliquis twice daily for 30 days to prevent blood clots. Recommend use of compression stockings daily until follow up to help prevent swelling and blood clots. May remove at night before sleeping. Please follow-up with [facility] in 2 weeks and call with any questions or concerns, . Discharge Disposition: HOME WITH HOME HEALTH SERVICES
== END 2024-04-20 14:13 | disposition home health service (06) | DRG 481 ==
LOC: EC 12:35 → 5NMEDONC 13:45
PROVIDERS: ADMIT Internal Medicine; ATTEND Internal Medicine
PROC: 8E0YXBF Computer Assisted Procedure of Lower Extremity, With Fluoroscopy (ICD-10-PCS; principal; 2024-04-17 09:05)
PROC: 0QS636Z Reposition Right Upper Femur with Intramedullary Internal Fixation Device, Percutaneous Approach (ICD-10-PCS; principal; 2024-04-17 09:05)
PROC: 30233N1 Transfusion of Nonautologous Red Blood Cells into Peripheral Vein, Percutaneous Approach (ICD-10-PCS; 2024-04-19)
DX: M84.451A Pathological fracture, right femur, initial encounter for fracture (principal); C79.51 Secondary malignant neoplasm of bone; C50.919 Malignant neoplasm of unspecified site of unspecified female breast; J44.9 Chronic obstructive pulmonary disease, unspecified; N18.30 Chronic kidney disease, stage 3 unspecified; E03.9 Hypothyroidism, unspecified; I12.9 Hypertensive chronic kidney disease with stage 1 through stage 4 chronic kidney disease, or unspecified chronic kidney disease; D62 Acute posthemorrhagic anemia; I10 Essential (primary) hypertension; Z79.890 Hormone replacement therapy; E78.5 Hyperlipidemia, unspecified; F41.9 Anxiety disorder, unspecified; K21.9 Gastro-esophageal reflux disease without esophagitis; K59.00 Constipation, unspecified; F17.210 Nicotine dependence, cigarettes, uncomplicated; W01.0XXA Fall on same level from slipping, tripping and stumbling without subsequent striking against object, initial encounter; Z17.21 Progesterone receptor positive status; S63.501A Unspecified sprain of right wrist, initial encounter; Z79.01 Long term (current) use of anticoagulants; Z79.899 Other long term (current) drug therapy; Z85.3 Personal history of malignant neoplasm of breast; Z86.711 Personal history of pulmonary embolism; Z90.13 Acquired absence of bilateral breasts and nipples; Z90.710 Acquired absence of both cervix and uterus
CPT/HCPCS: 36415; 51702; 70450; 71045; 72125; 73501; 73502; 80048; 80053; 83735; 85025; 85027; 85610; 85730; 86850; 86900; 86901; 86920; 93005; 94640; 96374; 96376; 99285